=== PATIENT | female | born 1945 | race Caucasian/White ===

== ENCOUNTER 2017-11-17 09:38 | Outpatient (CLI) | payer MEDICARE, BC | END 2017-11-17 09:39 | disposition home or self-care (01) | LOC: BICMAMMO 09:38 | PROVIDERS: ATTEND Family Medicine | DX: Z12.31 Encounter for screening mammogram for malignant neoplasm of breast (principal) | CPT/HCPCS: 77063; 77067 ==

== ENCOUNTER 2018-05-07 09:53 | Emergency (ER) | payer MEDICARE, BC ==
[2018-05-07 10:27] LABS: #Basophils 0.1 thou/uL (0.0-0.2); #Eosinphils 0.2 thou/uL (0.0-0.7); #Lymphocytes 2.8 thou/uL (1.20-3.40); #Monocytes 0.7 thou/uL (0.11-0.59); #Neutrophils 4.8 thou/uL (1.40-6.50); %Basophils 0.7 % (0.0-1.0); %Eosinophils 1.9 % (0.0-10.0); %Monocytes 8.4 % (0.0-10.0); %Neutrophils 55.9 % (42.0-75.0); Hemoglobin 12.7 g/dL (12.0-16.0); Mean Corpuscular HGB CONC 32.6 g/dL (32.0-36.0); Mean Corpuscular Hemoglobin 30.7 pg (27.0-31.0); Mean Corpuscular Volume 94.2 fL (78.0-98.0); Mean Platelet Volume 7.5 fL (7.4-10.4); Platelet Count 292 thou/uL (130-400); RBC Distribution Width 12.5 % (11.5-14.5); Red Blood Cell (RBC) Count 4.14 mill/uL (4.20-5.40); White Blood Cell (WBC) Count 8.6 thou/uL (4.8-10.8)
[2018-05-07 10:45] LABS: ALT (SGPT) 36 U/L (8-55); AST (SGOT) 33 U/L (5-34); Albumin 4.6 g/dL (3.4-4.8); Alkaline Phosphatase 61 U/L (40-150); Anion Gap 19 mmol/L (10-20); BUN (Urea Nitrogen) 23 mg/dL (9.8-20.1); Bilirubin, Total 0.5 mg/dL (0.2-1.2); Calc. Creatinine Clearance 0 mL/min (70-130); Calcium 9.9 mg/dL (7.8-10.44); Carbon Dioxide 18 mmol/L (23-31); Chloride 104 mmol/L (98-107); Estimated GFR-MDRD 56; Globulin 3.1 g/dL (2.4-3.5); Glucose 138 mg/dL (83-110); Protein, Total 7.7 g/dL (6.0-8.3); Sodium 137 mmol/L (136-145)
== END 2018-05-07 11:00 | disposition home or self-care (01) ==
LOC: ERS 09:53
DX: K92.1 Melena (principal); E03.9 Hypothyroidism, unspecified; E11.9 Type 2 diabetes mellitus without complications; E78.5 Hyperlipidemia, unspecified; I10 Essential (primary) hypertension; Z79.899 Other long term (current) drug therapy; Z79.84 Long term (current) use of oral hypoglycemic drugs
CPT/HCPCS: 36415; 80053; 85025; 99283

== ENCOUNTER 2019-01-09 10:30 | Outpatient (CLI) | payer MEDICARE, BC ==
--- NOTE | 2019-01-09 11:29 | MMO ---
Bilateral MAMMO Bilat Screen [facility]. CLINICAL HISTORY: Patient is 73 years old and is seen for screening. The patient has no family history of breast cancer. The patient has no personal history of cancer. VIEWS: The views performed were: bilateral craniocaudal with tomosynthesis and bilateral mediolateral oblique with tomosynthesis. FILMS COMPARED: The present examination has been compared to a prior imaging study performed at [facility] on 11/17/2017. This study has been interpreted with the assistance of computer-aided detection. MAMMOGRAM FINDINGS: There are scattered fibroglandular densities. There are benign appearing calcifications seen in both breasts. There are no suspicious masses, suspicious calcifications, or new areas of architectural distortion. IMPRESSION: THERE IS NO MAMMOGRAPHIC EVIDENCE OF MALIGNANCY. A ROUTINE FOLLOW-UP MAMMOGRAM IN 1 YEAR IS RECOMMENDED. THE RESULTS OF THIS EXAM WERE SENT TO THE PATIENT. ACR BI-RADS Category 2 - Benign finding MAMMOGRAPHY NOTE: 1. A negative mammogram report should not delay a biopsy if a dominant of clinically suspicious mass is present. 2. Approximately 10% to 15% of breast cancers are not detected by mammography. 3. Adenosis and dense breasts may obscure an underlying neoplasm. Reported by: TWIN ASCENCIO MD Electonically Signed: [id number]
== END 2019-01-09 10:31 | disposition home or self-care (01) ==
LOC: BICMAMMO 10:30
PROVIDERS: ATTEND Family Medicine
DX: Z12.31 Encounter for screening mammogram for malignant neoplasm of breast (principal)
CPT/HCPCS: 77063; 77067

== ENCOUNTER 2019-03-22 15:17 | Emergency (ER) | payer MEDICARE, BC ==
[2019-03-22 16:25] LABS: #Basophils 0.1 thou/uL (0.0-0.2); #Eosinphils 0.2 thou/uL (0.0-0.7); #Lymphocytes 2.6 thou/uL (1.20-3.40); #Neutrophils 6.6 thou/uL (1.40-6.50); %Basophils 0.6 % (0.0-1.0); %Lymphocytes 24.9 % (21.0-51.0); %Monocytes 9.1 % (0.0-10.0); %Neutrophils 63.4 % (42.0-75.0); Hemoglobin 11.4 g/dL (12.0-16.0); Mean Corpuscular HGB CONC 33.8 g/dL (32.0-36.0); Mean Corpuscular Hemoglobin 30.5 pg (27.0-31.0); Mean Corpuscular Volume 90.3 fL (78.0-98.0); Mean Platelet Volume 7.2 fL (7.4-10.4); Platelet Count 303 thou/uL (130-400); RBC Distribution Width 12.1 % (11.5-14.5); Red Blood Cell (RBC) Count 3.72 mill/uL (4.20-5.40); White Blood Cell (WBC) Count 10.4 thou/uL (4.8-10.8)
[2019-03-22 16:59] LABS: ALT (SGPT) 30 U/L (8-55); AST (SGOT) 43 U/L (5-34); Albumin 4.5 g/dL (3.4-4.8); Alkaline Phosphatase 64 U/L (40-110); Anion Gap 16 mmol/L (10-20); BUN (Urea Nitrogen) 23 mg/dL (9.8-20.1); Bilirubin, Total 0.3 mg/dL (0.2-1.2); Calc. Creatinine Clearance 0 mL/min (70-130); Calcium 9.7 mg/dL (7.8-10.44); Carbon Dioxide 21 mmol/L (23-31); Chloride 106 mmol/L (98-107); Estimated GFR-MDRD 46; Glucose 160 mg/dL (83-110); Lipase 41 U/L (8-78); Potassium 3.9 mmol/L (3.5-5.1); Protein, Total 7.5 g/dL (6.0-8.3); Sodium 139 mmol/L (136-145)
[2019-03-22 19:50] LABS: Bacteria/HPF None Seen HPF (None Seen); Bilirubin Negative (Negative); Blood, Urine Negative (Negative); Clarity Clear (Clear); Glucose, Urine (Dipstick) Normal (Negative); Leukocyte 75 Leu/uL (Negative); Nitrite Negative (Negative); Protein, Urine (Dipstick) Negative (Neg-Trace); RBC/HPF 0-3 HPF (0-3); Squamous Epithelial 0-3 HPF (0-3); Urobilinogen Normal mg/dL (Less than 2)
== END 2019-03-22 20:47 | disposition home or self-care (01) ==
LOC: ERS 15:17
DX: K92.2 Gastrointestinal hemorrhage, unspecified (principal); E03.9 Hypothyroidism, unspecified; E78.5 Hyperlipidemia, unspecified; E11.9 Type 2 diabetes mellitus without complications; I10 Essential (primary) hypertension; Z79.899 Other long term (current) drug therapy; Z79.84 Long term (current) use of oral hypoglycemic drugs
CPT/HCPCS: 36415; 80053; 81003; 81015; 82274; 83690; 85025; 99284

== ENCOUNTER 2019-05-16 08:15 | Outpatient (CLI) | payer MEDICARE, BC ==
--- NOTE | 2019-05-16 09:37 | CT ---
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 COMPARISON: None. FINDINGS: The lung bases are clear. There is a 1 cm low-density lesion in the left lobe of the liver. A calcified gallstones present. The spleen, pancreas and adrenal glands are normal. There are nonobstructing bilateral renal calculi and small bilateral renal cysts. No free air, free fluid or lymphadenopathy seen in the abdomen or pelvis. The small bowel loops are n ot abnormally dilated. There are vascular calcifications without evidence of aneurysmal dilatation of the abdominal aorta. Degenerative changes seen in the spine. Minimal anterolisthesis of L4 over L5 . The patient is post hysterectomy. IMPRESSION: 1. Small hiatal hernia 2. Cholelithiasis 3. Small 1 cm low-density indeterminate lesion in the left lobe of the liver. 4. Nonobstructing bilateral renal calculi 5. Small bilateral renal cysts
[2019-05-16] MEDS ORDERED: Iopamidol-370 76% 500 ML 1 ML ONE (14:39)
== END 2019-05-16 08:16 | disposition home or self-care (01) ==
LOC: BICCT 08:15
PROVIDERS: ATTEND Physician Assistant Medical
DX: D50.9 Iron deficiency anemia, unspecified (principal); M19.90 Unspecified osteoarthritis, unspecified site; K44.9 Diaphragmatic hernia without obstruction or gangrene; K80.20 Calculus of gallbladder without cholecystitis without obstruction; N20.0 Calculus of kidney; N28.1 Cyst of kidney, acquired; K76.9 Liver disease, unspecified; Z85.9 Personal history of malignant neoplasm, unspecified
CPT/HCPCS: 74177; 82565; Q9967

== ENCOUNTER 2019-06-02 09:24 | Outpatient (CLI) | payer MEDICARE, BC ==
--- NOTE | 2019-06-02 12:03 | ULT ---
Hepatic Doppler ultrasound: 06/02/2019 HISTORY: Abnormal CT examination TECHNIQUE: Multiplanar grayscale sonographic imaging of the right upper quadrant obtained. Hepatic an d splenic vasculature assessed with Doppler interrogation including color flow and spectral analysis FINDINGS: Imaged pancreas unremarkable, partially obscured by bowel gas. Aorta and IVC appear grossly unremarkable. The hepatic parenchyma is diffusely heterogeneous and echogenic, suggesting hepatocellular disease, s uch as hepatic steatosis. Cholelithiasis noted. No gallbladder wall thickening or pericholecystic fluid. No gallstones are noted. The common bile duct measures up to 7 mm, upper limits of normal in a patient of this age. Left hepatic vein, left portal vein, middle hepatic vein, main portal vein, right portal vein, hepati c artery, and right hepatic vein demonstrate patency. There is a tiny hypoechoic lesion within the superior aspect of the left lobe of the liver which likely represent a small cyst, difficult to fully characterize given its small size, measuring approximately 1 cm. Spleen measures up to 9.9 cm, within normal limits. Splenic artery and splenic vein are patent and de monstrate appropriate waveforms. The kidneys were not evaluated on this examination. IMPRESSION: Hepatic parenchyma is heterogeneous and echogenic, suggesting steatosis. Cholelithiasis with no sonographic evidence of cholecystitis. CBD upper limits of normal in size. Hepatic and splenic vasculature patent.
== END 2019-06-02 09:25 | disposition home or self-care (01) ==
LOC: BICULT 09:24
PROVIDERS: ATTEND Internal Medicine Gastroenterology
DX: K76.9 Liver disease, unspecified (principal); K80.20 Calculus of gallbladder without cholecystitis without obstruction; R93.2 Abnormal findings on diagnostic imaging of liver and biliary tract
CPT/HCPCS: 76705

== ENCOUNTER 2020-02-06 10:12 | Outpatient (CLI) | payer MEDICARE, BC ==
--- NOTE | 2020-02-06 11:49 | MMO ---
Bilateral MAMMO Bilat Screen [facility]. CLINICAL HISTORY: Patient is 74 years old and is seen for screening. The patient has no family history of breast cancer. The patient has a history of colon cancer. VIEWS: The views performed were: bilateral craniocaudal with tomosynthesis and bilateral mediolateral oblique with tomosynthesis. FILMS COMPARED: The present examination has been compared to prior imaging studies performed at [facility] on 11/17/2017 and 01/09/2019. This study has been interpreted with the assistance of computer-aided detection. MAMMOGRAM FINDINGS: There are scattered fibroglandular densities. There are stable benign appearing calcifications seen in both breasts. There are no suspicious masses, suspicious calcifications, or new areas of architectural distortion. IMPRESSION: THERE IS NO MAMMOGRAPHIC EVIDENCE OF MALIGNANCY. A ROUTINE FOLLOW-UP MAMMOGRAM IN 1 YEAR IS RECOMMENDED. THE RESULTS OF THIS EXAM WERE SENT TO THE PATIENT. ACR BI-RADS Category 2 - Benign finding MAMMOGRAPHY NOTE: 1. A negative mammogram report should not delay a biopsy if a dominant of clinically suspicious mass is present. 2. Approximately 10% to 15% of breast cancers are not detected by mammography. 3. Adenosis and dense breasts may obscure an underlying neoplasm. Reported by: HOLLAND KULKARNI MD Electonically Signed: [id number]
== END 2020-02-06 10:13 | disposition home or self-care (01) ==
LOC: BICMAMMO 10:12
PROVIDERS: ATTEND Family Medicine
DX: Z12.31 Encounter for screening mammogram for malignant neoplasm of breast (principal); Z85.038 Personal history of other malignant neoplasm of large intestine
CPT/HCPCS: 77063; 77067

== ENCOUNTER 2020-04-10 15:27 | Outpatient (CLI) | payer MEDICARE, BC ==
--- NOTE | 2020-04-10 16:00 | RAD ---
3 views of the right shoulder: 04/10/2020 COMPARISON: None HISTORY: Right shoulder injury FINDINGS: There is degenerative change involving the right acromioclavicular joint with interspace na rrowing and inferior osteophyte formation. There is no widening of the acromioclavicular or coracoclavicular interspace and there is no displaced fracture or dislocation. IMPRESSION: Degenerative change. No acute fracture or dislocation.
--- NOTE | 2020-04-10 18:49 | RAD ---
RIGHT ELBOW FOUR VIEWS: 04/10/20 HISTORY: Injury right elbow. FINDINGS: Osteoarthrosis and degenerative changes noted involving the elbow with enthesophytes at the common fl exor and common extensor tendon insertion regions as well as some hypertrophic osteophytes. Probable small joint effusion. No overt acute fracture or dislocation. IMPRESSION: Osteoarthrosis and degenerative changes. Evidence for small joint effusion. No overt acute fracture. If patient has persistent or worsening right elbow pain, consider follow-up additional imaging with [facility] on a nonemergent basis. POS: OFF
== END 2020-04-10 15:28 | disposition home or self-care (01) ==
LOC: BICRAD 15:27
PROVIDERS: ATTEND Family Medicine
DX: S59.901A Unspecified injury of right elbow, initial encounter (principal); S49.91XA Unspecified injury of right shoulder and upper arm, initial encounter; M19.021 Primary osteoarthritis, right elbow; M25.421 Effusion, right elbow; M19.011 Primary osteoarthritis, right shoulder

== ENCOUNTER 2020-08-27 17:38 | Inpatient (IN) | payer MEDICARE, BC ==
[~2020-08-27 17:38] MED LIST: Iopamidol-370 76% 500 ML 1 ML ONE
[2020-08-27 18:16] LABS: Hemoglobin 13.2 g/dL (12.0-16.0); Mean Corpuscular Hemoglobin 28.5 pg (27.0-31.0); Mean Corpuscular Volume 89.2 fL (78.0-98.0); Mean Platelet Volume 7.3 fL (7.4-10.4); Platelet Count 322 thou/uL (130-400); RBC Distribution Width 13.8 % (11.5-14.5); Red Blood Cell (RBC) Count 4.62 mill/uL (4.20-5.40); White Blood Cell (WBC) Count 22.1 thou/uL (4.8-10.8)
[2020-08-27] MEDS ORDERED: Pantoprazole 40 MG VIAL ONE (18:24)
[2020-08-27] MEDS ORDERED: Mag-Al 1200 mg/1200 mg/30 ML UDCUP ONE (18:24)
[2020-08-27] MEDS ORDERED: Lidocaine Viscous Sol 2% 15 ml UD Cup ONE (18:24)
[2020-08-27 18:33] LABS: Band 10 % (5-11); Eosinophils 1 % (0-10); Lymphocytes 7 % (21-51); MDiff Complete? YES; Monocytes 2 % (0-10); Neutrophil 78 % (42-75); Platelet Morphology Comment Appears Adequate; RBC Morphology Normal
[2020-08-27 18:40] LABS: ALT (SGPT) 18 U/L (8-55); AST (SGOT) 25 U/L (5-34); Albumin 4.7 g/dL (3.4-4.8); Alkaline Phosphatase 75 U/L (40-110); Anion Gap 22 mmol/L (10-20); BUN (Urea Nitrogen) 18 mg/dL (9.8-20.1); Bilirubin, Total 0.3 mg/dL (0.2-1.2); Calc. Creatinine Clearance 0 mL/min (70-130); Calcium 10.9 mg/dL (7.8-10.44); Carbon Dioxide 20 mmol/L (23-31); Chloride 102 mmol/L (98-107); Globulin 3.6 g/dL (2.4-3.5); Glucose 177 mg/dL (83-110); Lipase 34 U/L (8-78); Potassium 3.8 mmol/L (3.5-5.1); Protein, Total 8.3 g/dL (5.8-8.1); Sodium 140 mmol/L (136-145)
[2020-08-27] MEDS ORDERED: Ondansetron PF 4 MG/2 ML Vial ONE ×2 (19:18→20:54)
[2020-08-27] MEDS ORDERED: Morphine 4 MG/ML VIAL ONE ×3 (19:18→23:37)
[2020-08-27 20:21] LABS: Bacteria/HPF None Seen HPF (None Seen); Bilirubin Negative (Negative); Blood, Urine Negative (Negative); Clarity Clear (Clear); Glucose, Urine (Dipstick) Normal (Negative); Ketone, Urine 10 mg/dL (Negative); Leukocyte Negative Leu/uL (Negative); Nitrite Negative (Negative); Protein, Urine (Dipstick) 30 mg/dL (Neg-Trace); RBC/HPF 0-3 HPF (0-3); Specific Gravity, Urine 1.025 (1.002-1.036); Squamous Epithelial None Seen HPF (0-3); Urobilinogen Normal mg/dL (Less than 2); WBC/HPF 0-3 HPF (0-3); pH, Urine 5.5 (5.0-9.0)
[2020-08-27] MEDS ORDERED: Benzocaine 20% Spray 60 ML CAN ONE (20:54)
[2020-08-27] MEDS ORDERED: Lidocaine 2% PF 5 ML VIAL ONE (20:54)
[2020-08-27] MEDS ORDERED: Lidocaine 2% Jelly 5 ML TUBE TOP SCH (21:15)
[2020-08-27] MEDS ORDERED: Ondansetron ODT 4 MG TAB SL PRN (23:15)
[2020-08-27] MEDS ORDERED: Acetaminophen 325 MG TAB PO PRN (23:15)
[2020-08-27] MEDS ORDERED: Ondansetron PF 4 MG/2 ML Vial IVP PRN (23:15)
[2020-08-27] MEDS: Sodium Chloride 0.9% 1,000 ML IV SCH (23:34)
[2020-08-27] MEDS: Morphine 4 MG/ML VIAL SLOW IVP PRN (23:35)
[2020-08-28] MEDS ORDERED: Morphine 4 MG/ML VIAL ONE (04:58)
[2020-08-28] MEDS: Morphine 4 MG/ML VIAL SLOW IVP PRN (05:03)
[2020-08-28 06:30] LABS: SARS-CoV-2 NAA Rapid Test Not Detected (NotDetected)
[2020-08-28] MEDS: Sodium Chloride 0.9% 1,000 ML IV SCH (08:12)
[2020-08-28] MEDS ORDERED: Dextrose 50% Abboject 50 ML SYRINGE SLOW IVP PRN (10:00)
[2020-08-28] MEDS ORDERED: Dextrose 5% in Water 1,000 ML IV PRN (10:00)
[2020-08-28] MEDS ORDERED: Morphine 4 MG/ML VIAL SLOW IVP PRN (10:04)
[2020-08-28] MEDS ORDERED: Meropenem 2 GM in Admixture Fee 1 EACH IVPB SCH (14:00)
[2020-08-28] MEDS ORDERED: Fentanyl 100 MCG/2 ML VIAL ONE ×4 (15:13→21:10)
[2020-08-28] MEDS ORDERED: EPINEPHrine 1 MG/ML AMP ONE (15:14)
[2020-08-28] MEDS ORDERED: Bupivacaine PF 0.5% 30 ML VIAL ONE (15:14)
[2020-08-28] MEDS ORDERED: Iothalamate Meglumine 60% 50 ML VIAL FS ONE (15:14)
[2020-08-28] MEDS ORDERED: Succinylcholine 200 MG/10 ml SYRINGE FS ONE (16:00)
[2020-08-28] MEDS ORDERED: Ondansetron PF 4 MG/2 ML Vial ONE (16:00)
[2020-08-28] MEDS ORDERED: Dexamethasone 20 MG/5 ML VIAL ONE (16:00)
[2020-08-28] MEDS ORDERED: PROPOFOL 200 MG/20 ML VIAL ONE (16:00)
[2020-08-28] MEDS ORDERED: Glycopyrrolate 0.2 MG/ML 5 ML SYRINGE ONE (16:00)
[2020-08-28] MEDS ORDERED: PHENYLEPHRINE-NS 100 MCG/ML 10 ML SYRINGE ONE (16:00)
[2020-08-28] MEDS ORDERED: Bupivacaine HCl 0.5%/Epinephrine 1:200,000/PF 30 ml Vial ONE (16:00)
[2020-08-28] MEDS ORDERED: Lidocaine 1% PF 5 ML VIAL ONE (16:00)
[2020-08-28] MEDS ORDERED: Rocuronium Bromide 10 MG/ML (10ML VIAL) ONE (16:00)
[2020-08-28] MEDS ORDERED: Albumin 5% 250 ML ONE (18:32)
[2020-08-28] MEDS ORDERED: Phenylephrine 10 MG/ML VIAL ONE (18:32)
[2020-08-28] MEDS: Meropenem 2 GM in Sodium Chloride 0.9% 100 ML IVPB SCH ×2 (19:23→22:32)
[2020-08-28] MEDS ORDERED: HYDROmorphone 2 MG/ML VIAL ONE (20:21)
[2020-08-28] MEDS ORDERED: SUGAMMADEX SODIUM 200 MG/2 ML VIAL ONE (20:22)
[2020-08-28] MEDS ORDERED: Promethazine HCl 25 MG/ML VIAL SLOW IVP PRN (20:40)
[2020-08-28] MEDS ORDERED: Promethazine HCl 25 MG/ML VIAL IM PRN ×2 (20:40→21:16)
[2020-08-28] MEDS ORDERED: Ondansetron HCl/PF 4 MG/2 ML Vial IVP PRN (20:40)
[2020-08-28] MEDS ORDERED: Ketorolac Tromethamine 30 MG/ML VIAL IVP PRN (20:46)
[2020-08-28] MEDS ORDERED: diphenhydrAMINE 50 MG/ML VIAL IVP PRN (21:16)
[2020-08-28] MEDS ORDERED: fentaNYL Citrate/PF 2,000 MCG in Sodium Chloride 0.9% 60 ML IV PRN (21:16)
[2020-08-28] MEDS ORDERED: Zolpidem Tartrate 5 MG TAB PO PRN (21:16)
[2020-08-28] MEDS ORDERED: Ondansetron PF 4 MG/2 ML Vial IVP PRN (21:16)
[2020-08-28] MEDS ORDERED: Naloxone HCl 0.4 mg/ml Vial IV PRN (21:16)
[2020-08-28] MEDS ORDERED: diphenhydrAMINE 50 MG/ML VIAL IM PRN (21:16)
[2020-08-28] MEDS ORDERED: diphenhydrAMINE 25 MG CAP PO PRN (21:16)
[2020-08-28] MEDS ORDERED: Communication Order-Pharmacy FS SCH (21:30)
[2020-08-28] MEDS: Enoxaparin Sodium 40 MG/0.4 ML SYRINGE SC SCH (22:32)
[2020-08-28] MEDS: Lactated Ringer's 1,000 ML IV SCH (22:36)
[2020-08-28] MEDS ORDERED: Albumin 25% 25 GM/100 ML BOT IVPB SCH (23:59)
[2020-08-28] MEDS ORDERED: Sodium Chloride 0.9% 1,000 ML IV SCH (23:59)
[2020-08-29 01:18] LABS: Hemoglobin 12.8 g/dL (12.0-16.0); Mean Corpuscular HGB CONC 31.5 g/dL (32.0-36.0); Mean Corpuscular Hemoglobin 29.6 pg (27.0-31.0); Mean Platelet Volume 7.7 fL (7.4-10.4); Platelet Count 224 thou/uL (130-400); RBC Distribution Width 14.3 % (11.5-14.5); Red Blood Cell (RBC) Count 4.33 mill/uL (4.20-5.40); White Blood Cell (WBC) Count 11.5 thou/uL (4.8-10.8)
[2020-08-29 01:32] LABS: Band 3 % (5-11); Lymphocytes 1 % (21-51); MDiff Complete? YES; Metamyelocyte 5 % (0-0); Monocytes 8 % (0-10); Neutrophil 83 % (42-75); Platelet Morphology Comment Appears Adequate
[2020-08-29] MEDS ORDERED: Sodium Chloride 0.9% 1,000 ML IV SCH ×2 (02:15→05:15)
[2020-08-29] MEDS: Lactated Ringer's 1,000 ML IV SCH (05:42)
[2020-08-29] MEDS: Meropenem 2 GM in Sodium Chloride 0.9% 100 ML IVPB SCH ×2 (05:42→16:05)
[2020-08-29 07:00] LABS: Anion Gap 16 mmol/L (10-20); BUN (Urea Nitrogen) 23 mg/dL (9.8-20.1); Calc. Creatinine Clearance 44 mL/min (70-130); Calcium 7.1 mg/dL (7.8-10.44); Carbon Dioxide 16 mmol/L (23-31); Chloride 116 mmol/L (98-107); Glucose 157 mg/dL (83-110); Magnesium 1.2 mg/dL (1.6-2.6); Phosphorus 3.1 mg/dL (2.3-4.7); Potassium 5.3 mmol/L (3.5-5.1); Sodium 143 mmol/L (136-145)
[2020-08-29] MEDS ORDERED: Sodium Chloride 0.45% 1,000 ML IV SCH ×2 (08:15→09:00)
[2020-08-29] MEDS: Pantoprazole 40 MG VIAL IVP SCH (08:37)
[2020-08-29] MEDS ORDERED: Non-Formulary Item 1 EACH (Diltiazem Hcl [Diltiazem 24hr Cd] 240 MG Cap.Er.24h) PO SCH (09:00)
[2020-08-29 09:17] LABS: Band 40 % (5-11); Hemoglobin 9.5 g/dL (12.0-16.0); Lymphocytes 8 % (21-51); MDiff Complete? YES; Mean Corpuscular HGB CONC 31.5 g/dL (32.0-36.0); Mean Corpuscular Hemoglobin 29.4 pg (27.0-31.0); Mean Corpuscular Volume 93.4 fL (78.0-98.0); Mean Platelet Volume 7.7 fL (7.4-10.4); Metamyelocyte 3 % (0-0); Monocytes 5 % (0-10); Neutrophil 44 % (42-75); Platelet Count 262 thou/uL (130-400); Platelet Morphology Comment Appears Adequate; RBC Distribution Width 14.1 % (11.5-14.5); RBC Morphology Normal; Red Blood Cell (RBC) Count 3.24 mill/uL (4.20-5.40); White Blood Cell (WBC) Count 24.8 thou/uL (4.8-10.8)
[2020-08-29] MEDS ORDERED: Sodium Chloride 0.45% 500 ML IV SCH (11:45)
[2020-08-29] MEDS: Sodium Chloride 0.45% 1,000 ML IV SCH ×3 (13:11→22:29)
[2020-08-29 15:25] LABS: Hemoglobin 9.1 g/dL (12.0-16.0); Mean Corpuscular Hemoglobin 29.4 pg (27.0-31.0); Mean Corpuscular Volume 94.8 fL (78.0-98.0); Mean Platelet Volume 7.5 fL (7.4-10.4); Platelet Count 265 thou/uL (130-400); White Blood Cell (WBC) Count 30.2 thou/uL (4.8-10.8)
[2020-08-29 15:58] LABS: Band 55 % (5-11); Lymphocytes 11 % (21-51); MDiff Complete? YES; Metamyelocyte 4 % (0-0); Monocytes 1 % (0-10); Neutrophil 27 % (42-75); Reactive Lymphocytes 2 % (0-10)
[2020-08-29] MEDS ORDERED: Furosemide 40 MG/4 ML VIAL ONE (17:52)
[2020-08-29] MEDS ORDERED: Furosemide 40 MG/4 ML VIAL SLOW IVP SCH (18:00)
[2020-08-29] MEDS ORDERED: Lidocaine 1% (PF) 30 ML VIAL ONE ×2 (18:38→18:42)
[2020-08-29] MEDS ORDERED: Fentanyl 100 MCG/2 ML VIAL ONE (18:40)
[2020-08-29] MEDS ORDERED: Sodium Chloride 0.9% 30 ML ONE (18:55)
[2020-08-29] MEDS ORDERED: Magnesium Sulfate 3 GM in Sodium Chloride 0.9% 100 ML IVPB SCH (19:15)
[2020-08-29] MEDS ORDERED: Ketamine 50 MG/ML (10ML VIAL) ONE (19:19)
[2020-08-29] MEDS ORDERED: Lidocaine 1% PF 5 ML VIAL ONE (19:29)
[2020-08-29] MEDS ORDERED: Ondansetron PF 4 MG/2 ML Vial ONE (19:29)
[2020-08-29] MEDS ORDERED: Calcium Chloride 1 GM/10 ML Abboject SYRINGE ONE (19:29)
[2020-08-29] MEDS ORDERED: PROPOFOL 200 MG/20 ML VIAL ONE (19:29)
[2020-08-29] MEDS ORDERED: Rocuronium Bromide 10 MG/ML (10ML VIAL) ONE (19:29)
[2020-08-29] MEDS ORDERED: Sodium Bicarb 50 MEQ/50 ML Abboject 8.4% SYRINGE ONE (19:48)
[2020-08-29] MEDS ORDERED: Sodium Bicarbonate 2.5 MEQ/5 ML VIAL ONE (19:48)
[2020-08-29] MEDS ORDERED: Ventilator Sedation Protocol 1 EACH FS SCH (21:00)
[2020-08-29 21:20] LABS: Actual Bicarbonate (HCO3a) 16.6 mEq/L (22-28); Base Excess (BEa) -9.2 mEq/L (-2.0 to +3.0); CO2 Tension 35.4 mmHg (35.0-45.0); Calcium, Ionized (arterial) 0.99 mmol/L (1.12-1.30); Carboxyhemoglobin (COHb) 0.5 gm% (0.0-3.0); Hemoglobin (Hb) 10.4 g/dL (12.0-16.0); O2 Tension (PaO2), arterial 73.2 mmHg (> 70.0); pH, Arterial 7.29 (7.35-7.45)
[2020-08-29 21:23] LABS: Hemoglobin 9.6 g/dL (12.0-16.0); Mean Corpuscular HGB CONC 32.3 g/dL (32.0-36.0); Mean Corpuscular Hemoglobin 29.5 pg (27.0-31.0); Mean Corpuscular Volume 91.4 fL (78.0-98.0); Mean Platelet Volume 7.6 fL (7.4-10.4); Platelet Count 216 thou/uL (130-400); RBC Distribution Width 14.1 % (11.5-14.5); Red Blood Cell (RBC) Count 3.26 mill/uL (4.20-5.40); White Blood Cell (WBC) Count 23.6 thou/uL (4.8-10.8)
[2020-08-29 21:25] LABS: Puncture Site Arterial Line
[2020-08-29] MEDS ORDERED: Fentanyl BOLUS 250 ML IVPB PRN (21:30)
[2020-08-29] MEDS ORDERED: Propofol BOLUS 1,000 MG/100 ML VIAL IV PRN (21:30)
[2020-08-29] MEDS ORDERED: DISCONTINUE PREVIOUS NARCOTIC PAIN MEDICATIONS AND BENZODIAZEPINES FS SCH (21:30)
[2020-08-29] MEDS ORDERED: Fentanyl CADD 100 ML IV SCH (21:30)
[2020-08-29] MEDS ORDERED: Propofol 1,000 MG/100 ML VIAL IV PRN (21:30)
[2020-08-29] MEDS ORDERED: Sodium Bicarb 50 MEQ/50 ML Abboject 8.4% SYRINGE IVP SCH (21:45)
[2020-08-29 21:49] LABS: Band 47 % (5-11); Lymphocytes 6 % (21-51); MDiff Complete? YES; Metamyelocyte 2 % (0-0); Monocytes 3 % (0-10); Neutrophil 42 % (42-75)
[2020-08-29] MEDS: Albuterol Sulfate 1.25 MG/3 ML NEB NEB SCH (21:53)
[2020-08-29] MEDS: Enoxaparin Sodium 40 MG/0.4 ML SYRINGE SC SCH (21:55)
[2020-08-29] MEDS: HumaLOG 300 UNITS/3 ML VIAL SC PRN (23:11)
[2020-08-29] MEDS: Albumin 25% 25 GM/100 ML BOT IVPB SCH (23:13)
[2020-08-30] MEDS: Meropenem 2 GM in Sodium Chloride 0.9% 100 ML IVPB SCH ×3 (01:35→15:56)
[2020-08-30] MEDS: Sodium Chloride 0.45% 1,000 ML IV SCH ×2 (01:35→08:59)
[2020-08-30] MEDS: Albuterol Sulfate 1.25 MG/3 ML NEB NEB SCH ×6 (01:53→22:36)
[2020-08-30] MEDS: HumaLOG 300 UNITS/3 ML VIAL SC PRN ×2 (03:51→22:24)
[2020-08-30] MEDS ORDERED: Sodium Chloride 0.9% 1,000 ML IV SCH (04:45)
[2020-08-30] MEDS: Albumin 25% 25 GM/100 ML BOT IVPB SCH ×3 (05:05→18:19)
[2020-08-30 05:08] LABS: Hemoglobin 8.9 g/dL (12.0-16.0); Mean Corpuscular HGB CONC 32.5 g/dL (32.0-36.0); Mean Corpuscular Hemoglobin 29.4 pg (27.0-31.0); Mean Corpuscular Volume 90.5 fL (78.0-98.0); Mean Platelet Volume 8.1 fL (7.4-10.4); Platelet Count 204 thou/uL (130-400); RBC Distribution Width 14.1 % (11.5-14.5); Red Blood Cell (RBC) Count 3.03 mill/uL (4.20-5.40); White Blood Cell (WBC) Count 19.6 thou/uL (4.8-10.8)
[2020-08-30 05:14] LABS: ALT (SGPT) 30 U/L (8-55); AST (SGOT) 65 U/L (5-34); Alkaline Phosphatase 44 U/L (40-110); Bilirubin, Direct 0.6 mg/dL (0.1-0.3); Bilirubin, Total 0.9 mg/dL (0.2-1.2)
[2020-08-30 05:27] LABS: Anion Gap 13 mmol/L (10-20); BUN (Urea Nitrogen) 24 mg/dL (9.8-20.1); Calc. Creatinine Clearance 47 mL/min (70-130); Calcium 7.5 mg/dL (7.8-10.44); Carbon Dioxide 22 mmol/L (23-31); Chloride 106 mmol/L (98-107); Glucose 169 mg/dL (83-110); Magnesium 1.6 mg/dL (1.6-2.6); Potassium 3.5 mmol/L (3.5-5.1); Sodium 137 mmol/L (136-145)
[2020-08-30 05:42] LABS: Band 46 % (5-11); Lymphocytes 6 % (21-51); MDiff Complete? YES; Metamyelocyte 5 % (0-0); Monocytes 2 % (0-10); Neutrophil 41 % (42-75)
[2020-08-30 06:51] LABS: Actual Bicarbonate (HCO3a) 20.8 mEq/L (22-28); Base Excess (BEa) -3.4 mEq/L (-2.0 to +3.0); CO2 Tension 33.6 mmHg (35.0-45.0); Calcium, Ionized (arterial) 0.92 mmol/L (1.12-1.30); Carboxyhemoglobin (COHb) 0.3 gm% (0.0-3.0); Hemoglobin (Hb) 8.9 g/dL (12.0-16.0); O2 Tension (PaO2), arterial 76.5 mmHg (> 70.0); Potassium - ABG Lab 3.25 mmol/L (3.70-5.30); pH, Arterial 7.41 (7.35-7.45)
[2020-08-30 07:12] LABS: Puncture Site Arterial Line
[2020-08-30] MEDS: Lactated Ringer's 1,000 ML IV SCH (11:06)
[2020-08-30] MEDS: Pantoprazole 40 MG VIAL IVP SCH (11:17)
[2020-08-30] MEDS ORDERED: Lactated Ringer's 1,000 ML IV SCH (13:45)
[2020-08-30] MEDS: Morphine 2 MG/ML VIAL SLOW IVP PRN (18:19)
[2020-08-30] MEDS: Enoxaparin Sodium 40 MG/0.4 ML SYRINGE SC SCH (20:27)
[2020-08-31] MEDS: Meropenem 2 GM in Sodium Chloride 0.9% 100 ML IVPB SCH ×3 (00:28→16:53)
[2020-08-31] MEDS: Lactated Ringer's 1,000 ML IV SCH ×2 (00:28→20:05)
[2020-08-31] MEDS: Albumin 25% 25 GM/100 ML BOT IVPB SCH (00:28)
[2020-08-31] MEDS: Albuterol Sulfate 1.25 MG/3 ML NEB NEB SCH ×6 (02:29→22:18)
[2020-08-31 05:14] LABS: Hemoglobin 7.8 g/dL (12.0-16.0); Mean Corpuscular HGB CONC 34.1 g/dL (32.0-36.0); Mean Corpuscular Hemoglobin 30.3 pg (27.0-31.0); Mean Corpuscular Volume 88.8 fL (78.0-98.0); Mean Platelet Volume 7.8 fL (7.4-10.4); Platelet Count 178 thou/uL (130-400); RBC Distribution Width 13.8 % (11.5-14.5); Red Blood Cell (RBC) Count 2.57 mill/uL (4.20-5.40); White Blood Cell (WBC) Count 15.6 thou/uL (4.8-10.8)
[2020-08-31 05:19] LABS: Anion Gap 17 mmol/L (10-20); BUN (Urea Nitrogen) 14 mg/dL (9.8-20.1); Calc. Creatinine Clearance 85 mL/min (70-130); Calcium 7.7 mg/dL (7.8-10.44); Carbon Dioxide 19 mmol/L (23-31); Chloride 106 mmol/L (98-107); Glucose 153 mg/dL (83-110); Magnesium 1.7 mg/dL (1.6-2.6); Sodium 139 mmol/L (136-145)
[2020-08-31 05:23] LABS: ALT (SGPT) 21 U/L (8-55); AST (SGOT) 30 U/L (5-34); Albumin 3.6 g/dL (3.4-4.8); Alkaline Phosphatase 49 U/L (40-110); Bilirubin, Direct 0.4 mg/dL (0.1-0.3); Bilirubin, Total 0.7 mg/dL (0.2-1.2); Protein, Total 5.6 g/dL (5.8-8.1)
[2020-08-31 06:56] LABS: Band 31 % (5-11); Lymphocytes 2 % (21-51); MDiff Complete? YES; Monocytes 9 % (0-10); Neutrophil 58 % (42-75)
[2020-08-31 07:28] LABS: Actual Bicarbonate (HCO3a) 19.6 mEq/L (22-28); Base Excess (BEa) -3.2 mEq/L (-2.0 to +3.0); CO2 Tension 26.8 mmHg (35.0-45.0); Calcium, Ionized (arterial) 0.97 mmol/L (1.12-1.30); Carboxyhemoglobin (COHb) 0.3 gm% (0.0-3.0); Hemoglobin (Hb) 7.9 g/dL (12.0-16.0); O2 Tension (PaO2), arterial 101.4 mmHg (> 70.0); Potassium - ABG Lab 3.08 mmol/L (3.70-5.30); pH, Arterial 7.48 (7.35-7.45)
[2020-08-31 07:40] LABS: Puncture Site Arterial Line
[2020-08-31] MEDS: Pantoprazole 40 MG VIAL IVP SCH (08:20)
[2020-08-31] MEDS ORDERED: Magnesium Sulfate 3 GM in Sodium Chloride 0.9% 250 ML 250 ML IVPB SCH (10:15)
[2020-08-31] MEDS ORDERED: Potassium Phosphate 30 MMOL in Sodium Chloride 0.9% 250 ML 250 ML IVPB SCH (10:15)
[2020-08-31] MEDS: Enoxaparin Sodium 40 MG/0.4 ML SYRINGE SC SCH (20:07)
[2020-09-01] MEDS: Meropenem 2 GM in Sodium Chloride 0.9% 100 ML IVPB SCH ×3 (00:08→16:12)
[2020-09-01] MEDS: Albuterol Sulfate 1.25 MG/3 ML NEB NEB SCH ×6 (01:43→22:13)
[2020-09-01] MEDS: Lactated Ringer's 1,000 ML IV SCH ×2 (03:46→10:41)
[2020-09-01 04:44] LABS: Anion Gap 13 mmol/L (10-20); BUN (Urea Nitrogen) 12 mg/dL (9.8-20.1); Calc. Creatinine Clearance 105 mL/min (70-130); Carbon Dioxide 22 mmol/L (23-31); Chloride 107 mmol/L (98-107); Glucose 133 mg/dL (83-110); Magnesium 2.1 mg/dL (1.6-2.6); Potassium 3.6 mmol/L (3.5-5.1); Sodium 138 mmol/L (136-145)
[2020-09-01 05:10] LABS: Band 19 % (5-11); Hemoglobin 7.8 g/dL (12.0-16.0); Lymphocytes 9 % (21-51); MDiff Complete? YES; Mean Corpuscular HGB CONC 32.6 g/dL (32.0-36.0); Mean Corpuscular Hemoglobin 29.4 pg (27.0-31.0); Mean Corpuscular Volume 90.2 fL (78.0-98.0); Mean Platelet Volume 7.2 fL (7.4-10.4); Monocytes 4 % (0-10); Neutrophil 68 % (42-75); Platelet Count 166 thou/uL (130-400); RBC Distribution Width 13.6 % (11.5-14.5); Red Blood Cell (RBC) Count 2.66 mill/uL (4.20-5.40); White Blood Cell (WBC) Count 14.5 thou/uL (4.8-10.8)
[2020-09-01 07:11] LABS: Actual Bicarbonate (HCO3a) 18.9 mEq/L (22-28); Base Excess (BEa) -4.5 mEq/L (-2.0 to +3.0); CO2 Tension 28.6 mmHg (35.0-45.0); Calcium, Ionized (arterial) 1.11 mmol/L (1.12-1.30); Hemoglobin (Hb) 8.2 g/dL (12.0-16.0); O2 Tension (PaO2), arterial 86.1 mmHg (> 70.0); Potassium - ABG Lab 3.52 mmol/L (3.70-5.30); pH, Arterial 7.44 (7.35-7.45)
[2020-09-01 07:22] LABS: Puncture Site Arterial Line
[2020-09-01] MEDS: Pantoprazole 40 MG VIAL IVP SCH (10:48)
[2020-09-01] MEDS: Enoxaparin Sodium 40 MG/0.4 ML SYRINGE SC SCH (21:42)
[2020-09-02] MEDS: Meropenem 2 GM in Sodium Chloride 0.9% 100 ML IVPB SCH ×3 (00:13→16:38)
[2020-09-02] MEDS: Lactated Ringer's 1,000 ML IV SCH ×2 (00:14→14:11)
[2020-09-02] MEDS: Albuterol Sulfate 1.25 MG/3 ML NEB NEB SCH ×3 (02:05→10:40)
[2020-09-02] MEDS: Pantoprazole 40 MG VIAL IVP SCH (09:24)
[2020-09-02] MEDS ORDERED: methylPREDNISolone Sod Succ 40 MG VIAL IVP SCH (12:00)
[2020-09-02] MEDS: methylPREDNISolone Sod Succ 40 MG VIAL IVP SCH ×2 (12:06→17:02)
[2020-09-02 12:37] LABS: Actual Bicarbonate (HCO3a) 19.8 mEq/L (22-28); Base Excess (BEa) -6.8 mEq/L (-2.0 to +3.0); CO2 Tension 44.1 mmHg (35.0-45.0); Hemoglobin (Hb) 8.8 g/dL (12.0-16.0); O2 Tension (PaO2), arterial 190.7 mmHg (> 70.0); pH, Arterial 7.27 (7.35-7.45)
[2020-09-02 12:38] LABS: Actual Bicarbonate (HCO3a) 20.1 mEq/L (22-28); Analyzer IN Cardio OR; Base Excess (BEa) -5.1 mEq/L (-2.0 to +3.0); CO2 Tension 37.6 mmHg (35.0-45.0); Calcium, Ionized (arterial) 1.01 mmol/L (1.12-1.30); Carboxyhemoglobin (COHb) 0.7 gm% (0.0-3.0); Hemoglobin (Hb) 10.2 g/dL (12.0-16.0); O2 Tension (PaO2), arterial 176.7 mmHg (> 70.0); Potassium - ABG Lab 4.56 mmol/L (3.70-5.30); Puncture Site Arterial Line; pH, Arterial 7.35 (7.35-7.45)
[2020-09-02 12:38] LABS: Analyzer IN Cardio OR; Calcium, Ionized (arterial) 1.21 mmol/L (1.12-1.30); Carboxyhemoglobin (COHb) 1.3 gm% (0.0-3.0); Potassium - ABG Lab 4.41 mmol/L (3.70-5.30); Puncture Site Arterial Line
[2020-09-02] MEDS: Enoxaparin Sodium 40 MG/0.4 ML SYRINGE SC SCH (19:50)
[2020-09-02] MEDS: HumaLOG 300 UNITS/3 ML VIAL SC PRN (19:53)
[2020-09-03] MEDS: methylPREDNISolone Sod Succ 40 MG VIAL IVP SCH ×5 (00:23→23:59)
[2020-09-03] MEDS: Meropenem 2 GM in Sodium Chloride 0.9% 100 ML IVPB SCH ×4 (00:23→23:59)
[2020-09-03 05:11] LABS: Mean Corpuscular HGB CONC 32.2 g/dL (32.0-36.0); Mean Corpuscular Volume 89.9 fL (78.0-98.0); Mean Platelet Volume 7.8 fL (7.4-10.4); Platelet Count 229 thou/uL (130-400); RBC Distribution Width 13.8 % (11.5-14.5); Red Blood Cell (RBC) Count 2.77 mill/uL (4.20-5.40); White Blood Cell (WBC) Count 19.1 thou/uL (4.8-10.8)
[2020-09-03] MEDS: Lactated Ringer's 1,000 ML IV SCH ×2 (05:15→15:45)
[2020-09-03 05:30] LABS: Anion Gap 16 mmol/L (10-20); BUN (Urea Nitrogen) 15 mg/dL (9.8-20.1); Calc. Creatinine Clearance 108 mL/min (70-130); Calcium 8.9 mg/dL (7.8-10.44); Carbon Dioxide 21 mmol/L (23-31); Chloride 107 mmol/L (98-107); Glucose 191 mg/dL (83-110); Potassium 3.5 mmol/L (3.5-5.1); Sodium 140 mmol/L (136-145)
[2020-09-03] MEDS: HumaLOG 300 UNITS/3 ML VIAL SC PRN ×4 (05:41→20:19)
[2020-09-03 05:58] LABS: Band 18 % (5-11); Lymphocytes 5 % (21-51); MDiff Complete? YES; Metamyelocyte 1 % (0-0); Monocytes 2 % (0-10); Myelocyte 2 % (0-0); Neutrophil 72 % (42-75)
[2020-09-03] MEDS: Lorazepam 2 MG/ML VIAL SLOW IVP PRN ×4 (07:59→15:42)
[2020-09-03] MEDS: Pantoprazole 40 MG VIAL IVP SCH (08:01)
[2020-09-03] MEDS: Enoxaparin Sodium 40 MG/0.4 ML SYRINGE SC SCH (20:18)
[2020-09-04] MEDS: HumaLOG 300 UNITS/3 ML VIAL SC PRN ×4 (04:03→20:30)
[2020-09-04] MEDS: methylPREDNISolone Sod Succ 40 MG VIAL IVP SCH ×4 (05:15→23:44)
[2020-09-04] MEDS: Pantoprazole 40 MG VIAL IVP SCH (08:14)
[2020-09-04] MEDS: Meropenem 2 GM in Sodium Chloride 0.9% 100 ML IVPB SCH ×3 (08:14→23:44)
[2020-09-04] MEDS: Lactated Ringer's 1,000 ML IV SCH ×2 (10:34→23:44)
[2020-09-04] MEDS: Enoxaparin Sodium 40 MG/0.4 ML SYRINGE SC SCH (20:31)
[2020-09-05 04:11] LABS: Anion Gap 15 mmol/L (10-20); BUN (Urea Nitrogen) 25 mg/dL (9.8-20.1); Calc. Creatinine Clearance 110 mL/min (70-130); Calcium 8.7 mg/dL (7.8-10.44); Carbon Dioxide 24 mmol/L (23-31); Chloride 108 mmol/L (98-107); Glucose 216 mg/dL (83-110); Potassium 3.6 mmol/L (3.5-5.1); Sodium 143 mmol/L (136-145)
[2020-09-05 04:48] LABS: Band 14 % (5-11); Hemoglobin 9.4 g/dL (12.0-16.0); Lymphocytes 5 % (21-51); MDiff Complete? YES; Mean Corpuscular HGB CONC 33.3 g/dL (32.0-36.0); Mean Corpuscular Hemoglobin 29.7 pg (27.0-31.0); Mean Corpuscular Volume 89.1 fL (78.0-98.0); Mean Platelet Volume 7.9 fL (7.4-10.4); Metamyelocyte 3 % (0-0); Monocytes 1 % (0-10); Myelocyte 1 % (0-0); Neutrophil 76 % (42-75); Platelet Count 389 thou/uL (130-400); RBC Distribution Width 14.1 % (11.5-14.5); Red Blood Cell (RBC) Count 3.15 mill/uL (4.20-5.40); White Blood Cell (WBC) Count 22.2 thou/uL (4.8-10.8)
[2020-09-05] MEDS: methylPREDNISolone Sod Succ 40 MG VIAL IVP SCH ×4 (05:05→23:36)
[2020-09-05] MEDS: HumaLOG 300 UNITS/3 ML VIAL SC PRN ×4 (05:05→22:29)
[2020-09-05] MEDS: Meropenem 2 GM in Sodium Chloride 0.9% 100 ML IVPB SCH ×3 (09:00→23:36)
[2020-09-05] MEDS: Pantoprazole 40 MG VIAL IVP SCH (09:01)
[2020-09-05] MEDS: Lactated Ringer's 1,000 ML IV SCH ×2 (10:07→23:36)
[2020-09-05] MEDS ORDERED: Acetaminophen 500 MG TAB PO PRN ×2 (10:24→14:41)
[2020-09-05] MEDS: Morphine 2 MG/ML VIAL SLOW IVP PRN (12:26)
[2020-09-05] MEDS ORDERED: traMADol HCl 50 MG TAB PO PRN (14:41)
[2020-09-05] MEDS: Enoxaparin Sodium 40 MG/0.4 ML SYRINGE SC SCH (20:12)
[2020-09-06] MEDS: HumaLOG 300 UNITS/3 ML VIAL SC PRN ×4 (03:48→22:16)
[2020-09-06] MEDS: methylPREDNISolone Sod Succ 40 MG VIAL IVP SCH ×4 (05:32→23:30)
[2020-09-06] MEDS: Levothyroxine Sodium 75 MCG TAB PO SCH (05:32)
[2020-09-06] MEDS: Pantoprazole 40 MG VIAL IVP SCH (08:38)
[2020-09-06] MEDS: Multivit, Therapeutic 1 TAB PO SCH (08:38)
[2020-09-06] MEDS: Polyethylene Glycol 3350 17 GM Packet PO SCH (08:38)
[2020-09-06] MEDS: Losartan 25 MG TAB PO SCH (08:39)
[2020-09-06] MEDS: Stress 600 With Zinc 1 TAB PO SCH (08:40)
[2020-09-06] MEDS: Meropenem 2 GM in Sodium Chloride 0.9% 100 ML IVPB SCH ×2 (08:42→16:19)
[2020-09-06] MEDS: Lactated Ringer's 1,000 ML IV SCH (12:27)
[2020-09-06] MEDS: Simvastatin 10 MG TAB PO SCH (20:44)
[2020-09-06] MEDS: Enoxaparin Sodium 40 MG/0.4 ML SYRINGE SC SCH (20:44)
[2020-09-07] MEDS: Meropenem 2 GM in Sodium Chloride 0.9% 100 ML IVPB SCH ×3 (00:11→16:30)
[2020-09-07] MEDS: HumaLOG 300 UNITS/3 ML VIAL SC PRN ×4 (04:19→21:14)
[2020-09-07] MEDS: Levothyroxine Sodium 75 MCG TAB PO SCH (05:01)
[2020-09-07] MEDS: methylPREDNISolone Sod Succ 40 MG VIAL IVP SCH ×3 (05:01→17:33)
[2020-09-07] MEDS: Hydrochlorothiazide 25 MG TAB PO SCH (08:35)
[2020-09-07] MEDS: Multivit, Therapeutic 1 TAB PO SCH (08:35)
[2020-09-07] MEDS: metFORMIN 500 MG TAB PO SCH ×2 (08:35→16:30)
[2020-09-07] MEDS: Stress 600 With Zinc 1 TAB PO SCH (08:35)
[2020-09-07] MEDS: Polyethylene Glycol 3350 17 GM Packet PO SCH (08:36)
[2020-09-07] MEDS: Losartan 25 MG TAB PO SCH (08:39)
[2020-09-07] MEDS: Simvastatin 10 MG TAB PO SCH (20:46)
[2020-09-07] MEDS: Enoxaparin Sodium 40 MG/0.4 ML SYRINGE SC SCH (20:46)
[2020-09-08] MEDS: Levothyroxine Sodium 75 MCG TAB PO SCH (05:25)
[2020-09-08] MEDS: HumaLOG 300 UNITS/3 ML VIAL SC PRN ×3 (05:25→17:01)
[2020-09-08] MEDS: metFORMIN 500 MG TAB PO SCH ×2 (08:58→16:58)
[2020-09-08] MEDS: Hydrochlorothiazide 25 MG TAB PO SCH (08:59)
[2020-09-08] MEDS: Losartan 25 MG TAB PO SCH (08:59)
[2020-09-08] MEDS: Multivit, Therapeutic 1 TAB PO SCH (08:59)
[2020-09-08] MEDS: Stress 600 With Zinc 1 TAB PO SCH (09:00)
[2020-09-08] MEDS: Polyethylene Glycol 3350 17 GM Packet PO SCH (09:06)
[2020-09-08] MEDS: Enoxaparin Sodium 40 MG/0.4 ML SYRINGE SC SCH (20:46)
[2020-09-08] MEDS: Simvastatin 10 MG TAB PO SCH (20:46)
[2020-09-09] MEDS: HumaLOG 300 UNITS/3 ML VIAL SC PRN (04:28)
[2020-09-09 05:06] LABS: #Monocytes 0.7 thou/uL (0.11-0.59); %Eosinophils 0.2 % (0.0-10.0); %Lymphocytes 6.4 % (21.0-51.0); %Monocytes 4.7 % (0.0-10.0); %Neutrophils 88.6 % (42.0-75.0); Hemoglobin 10.2 g/dL (12.0-16.0); Mean Corpuscular HGB CONC 31.2 g/dL (32.0-36.0); Mean Corpuscular Hemoglobin 28.4 pg (27.0-31.0); Mean Corpuscular Volume 90.9 fL (78.0-98.0); Mean Platelet Volume 8.3 fL (7.4-10.4); Platelet Count 358 thou/uL (130-400); Red Blood Cell (RBC) Count 3.61 mill/uL (4.20-5.40); White Blood Cell (WBC) Count 15.8 thou/uL (4.8-10.8)
[2020-09-09 05:12] LABS: Hemoglobin A1c 6.7 % (4.0-6.0)
[2020-09-09 05:24] LABS: Anion Gap 8 mmol/L (10-20); BUN (Urea Nitrogen) 24 mg/dL (9.8-20.1); Calc. Creatinine Clearance 125 mL/min (70-130); Calcium 7.7 mg/dL (7.8-10.44); Carbon Dioxide 32 mmol/L (23-31); Chloride 105 mmol/L (98-107); Glucose 181 mg/dL (83-110); Potassium 3.1 mmol/L (3.5-5.1); Sodium 142 mmol/L (136-145)
[2020-09-09] MEDS: Levothyroxine Sodium 75 MCG TAB PO SCH (06:08)
[2020-09-09] MEDS: Losartan 25 MG TAB PO SCH (08:54)
[2020-09-09] MEDS: Hydrochlorothiazide 25 MG TAB PO SCH (08:55)
[2020-09-09] MEDS: Multivit, Therapeutic 1 TAB PO SCH (08:55)
[2020-09-09] MEDS: metFORMIN 500 MG TAB PO SCH ×2 (08:56→17:32)
[2020-09-09] MEDS: Polyethylene Glycol 3350 17 GM Packet PO SCH (08:56)
[2020-09-09] MEDS: Stress 600 With Zinc 1 TAB PO SCH (09:49)
[2020-09-09 10:37] VITALS: BMI 44.8
[2020-09-09] MEDS: Enoxaparin Sodium 40 MG/0.4 ML SYRINGE SC SCH (21:24)
[2020-09-09] MEDS: Simvastatin 10 MG TAB PO SCH (21:24)
[2020-09-10] MEDS: Levothyroxine Sodium 75 MCG TAB PO SCH (05:14)
[2020-09-10] MEDS: HumaLOG 300 UNITS/3 ML VIAL SC PRN ×2 (05:25→12:10)
[2020-09-10] MEDS: Stress 600 With Zinc 1 TAB PO SCH (08:56)
[2020-09-10] MEDS: metFORMIN 500 MG TAB PO SCH ×2 (08:56→17:23)
[2020-09-10] MEDS: Multivit, Therapeutic 1 TAB PO SCH (08:57)
[2020-09-10] MEDS: Hydrochlorothiazide 25 MG TAB PO SCH (08:58)
[2020-09-10] MEDS: Losartan 25 MG TAB PO SCH (08:58)
[2020-09-10] MEDS: Polyethylene Glycol 3350 17 GM Packet PO SCH (08:59)
[2020-09-10 16:00] VITALS: BP 122/73; TEMP 97.9
== END 2020-09-10 18:09 | DRG 329 ==
LOC: ERS 17:38 → ERHOLD 21:08 → SURG B 08-28 07:44 → CCU 08-29 21:03 → IMCU/EMU 09-05 10:11 → SURG A 09-07 20:02
PROVIDERS: ADMIT Specialist; ATTEND Specialist
PROC: 0D9670Z Drainage of Stomach with Drainage Device, Via Natural or Artificial Opening (ICD-10-PCS; 2020-08-27)
PROC: 0DB80ZZ Excision of Small Intestine, Open Approach (ICD-10-PCS; principal; 2020-08-28)
PROC: 0FT40ZZ Resection of Gallbladder, Open Approach (ICD-10-PCS; 2020-08-28)
PROC: 0DN80ZZ Release Small Intestine, Open Approach (ICD-10-PCS; 2020-08-28)
PROC: 0DBB0ZZ Excision of Ileum, Open Approach (ICD-10-PCS; 2020-08-28)
PROC: 0WQF0ZZ Repair Abdominal Wall, Open Approach (ICD-10-PCS; 2020-08-28)
PROC: 0FJ44ZZ Inspection of Gallbladder, Percutaneous Endoscopic Approach (ICD-10-PCS; 2020-08-28)
PROC: 0W9G00Z Drainage of Peritoneal Cavity with Drainage Device, Open Approach (ICD-10-PCS; 2020-08-29)
PROC: 5A1955Z Respiratory Ventilation, Greater than 96 Consecutive Hours (ICD-10-PCS; 2020-08-29)
PROC: 3E033XZ Introduction of Vasopressor into Peripheral Vein, Percutaneous Approach (ICD-10-PCS; 2020-08-29)
PROC: 30233N1 Transfusion of Nonautologous Red Blood Cells into Peripheral Vein, Percutaneous Approach (ICD-10-PCS; 2020-08-29)
PROC: 02HV33Z Insertion of Infusion Device into Superior Vena Cava, Percutaneous Approach (ICD-10-PCS; 2020-08-29)
PROC: 0BJ08ZZ Inspection of Tracheobronchial Tree, Via Natural or Artificial Opening Endoscopic (ICD-10-PCS; 2020-09-04)
DX: K56.50 Intestinal adhesions [bands], unspecified as to partial versus complete obstruction (principal); J95.821 Acute postprocedural respiratory failure; C7A.019 Malignant carcinoid tumor of the small intestine, unspecified portion; K80.11 Calculus of gallbladder with chronic cholecystitis with obstruction; C25.9 Malignant neoplasm of pancreas, unspecified; N17.9 Acute kidney failure, unspecified; Z68.41 Body mass index [BMI] 40.0-44.9, adult; R65.10 Systemic inflammatory response syndrome (SIRS) of non-infectious origin without acute organ dysfunction; K56.7 Ileus, unspecified; Z20.822 Contact with and (suspected) exposure to COVID-19; Z96.653 Presence of artificial knee joint, bilateral; I10 Essential (primary) hypertension; E11.9 Type 2 diabetes mellitus without complications; E03.9 Hypothyroidism, unspecified; E78.5 Hyperlipidemia, unspecified; E66.01 Morbid (severe) obesity due to excess calories; D72.829 Elevated white blood cell count, unspecified; I95.9 Hypotension, unspecified; Y83.8 Other surgical procedures as the cause of abnormal reaction of the patient, or of later complication, without mention of misadventure at the time of the procedure; Z79.890 Hormone replacement therapy; Z79.899 Other long term (current) drug therapy; Z79.84 Long term (current) use of oral hypoglycemic drugs; Z90.710 Acquired absence of both cervix and uterus; Z90.49 Acquired absence of other specified parts of digestive tract; Z85.030 Personal history of malignant carcinoid tumor of large intestine; Z78.1 Physical restraint status
CPT/HCPCS: 36415; 36416; 36430; 43752; 51701; 71045; 74018; 74022; 74177; 76705; 80048; 80053; 80076; 81003; 81015; 82805; 83036; 83690; 83735; 84100; 85025; 86850; 86900; 86901; 88304; 88307; 88341; 88342; 88360; 93005; 93010; 93306; 94002; 94003; 94640; 96374; 96375; 96376; C1751; C9113; J0171; J1100; J1170; J1650; J1815; J1940; J2001; J2060; J2185; J2270; J2370; J2405; J2704; J2920; J3010; J3475; J3490; J7050; J7070; J7620; P9016; P9045; P9047; Q9961; Q9967; S0020; U0002; U0005

== ENCOUNTER 2021-01-15 08:27 | Outpatient (CLI) | payer MEDICARE, BC ==
[2021-01-15] MEDS ORDERED: Iopamidol 370 76% 100 ML VIAL ONE (11:02)
== END 2021-01-15 08:28 | disposition home or self-care (01) ==
LOC: CT 08:27
PROVIDERS: ATTEND Internal Medicine Hematology & Oncology
DX: C7A.012 Malignant carcinoid tumor of the ileum (principal); K63.89 Other specified diseases of intestine
CPT/HCPCS: 71260; 74177; 82565; Q9967

== ENCOUNTER 2021-03-04 11:03 | Outpatient (CLI) | payer MEDICARE, BC | END 2021-03-04 11:04 | disposition home or self-care (01) | LOC: BICMAMMO 11:03 | PROVIDERS: ATTEND Family Medicine | DX: Z12.31 Encounter for screening mammogram for malignant neoplasm of breast (principal); Z85.038 Personal history of other malignant neoplasm of large intestine | CPT/HCPCS: 77063; 77067 ==

== ENCOUNTER 2021-07-24 08:49 | Outpatient (CLI) | payer MEDICARE, BC | END 2021-07-24 08:50 | disposition home or self-care (01) | LOC: BICCT 08:49 | PROVIDERS: ATTEND Internal Medicine Hematology & Oncology | DX: C7A.012 Malignant carcinoid tumor of the ileum (principal); N20.0 Calculus of kidney; N28.1 Cyst of kidney, acquired; R19.00 Intra-abdominal and pelvic swelling, mass and lump, unspecified site | CPT/HCPCS: 74177; 82565 ==

== ENCOUNTER 2022-01-27 07:46 | Outpatient (CLI) | payer MEDICARE, BC ==
[2022-01-27] MEDS ORDERED: Iopamidol-370 76% 500 ML 1 ML ONE (09:50)
== END 2022-01-27 07:47 | disposition home or self-care (01) ==
LOC: BICCT 07:46
PROVIDERS: ATTEND Internal Medicine Hematology & Oncology
DX: C7A.012 Malignant carcinoid tumor of the ileum (principal); N20.0 Calculus of kidney
CPT/HCPCS: 74177; 82565; Q9967

== ENCOUNTER 2022-03-19 09:41 | Outpatient (CLI) | payer MEDICARE, BC | END 2022-03-19 09:42 | disposition home or self-care (01) | LOC: BICMAMMO 09:41 | PROVIDERS: ATTEND Family Medicine | DX: Z12.31 Encounter for screening mammogram for malignant neoplasm of breast (principal); Z13.820 Encounter for screening for osteoporosis; M85.851 Other specified disorders of bone density and structure, right thigh; M85.852 Other specified disorders of bone density and structure, left thigh; Z85.038 Personal history of other malignant neoplasm of large intestine; Z78.0 Asymptomatic menopausal state | CPT/HCPCS: 77063; 77067; 77080 ==

== ENCOUNTER 2022-07-28 10:03 | Outpatient (CLI) | payer MEDICARE, BC ==
[2022-07-28] MEDS ORDERED: Iopamidol-370 76% 500 ML MDV (1 ML CHARGE) ONE (14:47)
== END 2022-07-28 10:04 | disposition home or self-care (01) ==
LOC: BICCT 10:03
PROVIDERS: ATTEND Internal Medicine Hematology & Oncology
DX: C7A.012 Malignant carcinoid tumor of the ileum (principal)
CPT/HCPCS: 74177; 82565

== ENCOUNTER 2023-01-26 09:14 | Outpatient (CLI) | payer MEDICARE, BC | END 2023-01-26 09:15 | disposition home or self-care (01) | LOC: BICCT 09:14 | PROVIDERS: ATTEND Internal Medicine Hematology & Oncology | DX: C7A.012 Malignant carcinoid tumor of the ileum (principal) | CPT/HCPCS: 74177; 82565 ==

== ENCOUNTER 2023-04-15 09:37 | Outpatient (CLI) | payer MEDICARE, BC | END 2023-04-15 09:38 | disposition home or self-care (01) | LOC: BICMAMMO 09:37 | PROVIDERS: ATTEND Family Medicine | DX: Z12.31 Encounter for screening mammogram for malignant neoplasm of breast (principal) | CPT/HCPCS: 77063; 77067 ==

== ENCOUNTER 2023-09-30 22:29 | Inpatient (IN) | payer MEDICARE, BC ==
[~2023-09-30 22:29] MED LIST changes: -Iopamidol-370 76% 500 ML 1 ML ONE; +Iopamidol-370 76% 500 ML MDV (1 ML CHARGE) ONE
[2023-09-30 22:56] LABS: #Basophils 0.08 10x3/uL (0.0-0.2); #Eosinphils Less than 0.03 10x3/uL (0.0-0.7); %Basophils 0.4 % (0.0-1.0); %Eosinophils 0.1 % (0.0-10.0); %Lymphocytes 7.8 % (21.0-51.0); %Neutrophils 88.4 % (42.0-75.0); Hematocrit 41.8 % (36.0-47.0); Hemoglobin 14.3 g/dL (12.0-16.0); Mean Corpuscular HGB CONC 34.2 g/dL (32.0-36.0); Mean Corpuscular Hemoglobin 32.4 pg (27.0-31.0); Mean Corpuscular Volume 94.8 fL (78.0-98.0); Platelet Count 273 10x3/uL (130-400); RBC Distribution Width 12.7 % (11.5-14.5); Red Blood Cell (RBC) Count 4.41 mill/uL (4.20-5.40)
[2023-09-30 23:09] LABS: ALT (SGPT) 41 U/L (8-55); AST (SGOT) 71 U/L (5-34); Albumin 4.3 g/dL (3.4-4.8); Alkaline Phosphatase 80 U/L (40-110); Anion Gap 22 mmol/L (10-20); BUN (Urea Nitrogen) 18 mg/dL (9.8-20.1); Bilirubin, Total 0.6 mg/dL (0.2-1.2); Calc. Creatinine Clearance 0 mL/min (70-130); Calcium 10.5 mg/dL (7.8-10.44); Carbon Dioxide 16 mmol/L (23-31); Chloride 107 mmol/L (98-107); Estimated GFR 43; Globulin 4.1 g/dL (2.4-3.5); Glucose 189 mg/dL (83-110); Lipase 33 U/L (8-78); Potassium 4.2 mmol/L (3.5-5.1); Protein, Total 8.4 g/dL (5.8-8.1); Sodium 141 mmol/L (136-145)
[2023-09-30] MEDS ORDERED: Morphine 4 MG/ML VIAL ONE (23:17)
[2023-09-30] MEDS ORDERED: Ondansetron PF 4 MG/2 ML Vial ONE (23:17)
[2023-09-30 23:27] LABS: Troponin I Less than 0.010 ng/mL (< 0.028)
[2023-09-30 23:32] LABS: Magnesium 1.5 mg/dL (1.6-2.6)
[2023-10-01 00:15] LABS: Actual Bicarbonate (HCO3v) 20.7 mEq/L (22-28); Base Excess -4.6 mEq/L (-2.0 to +3.0); Calcium, Ionized (venous) 1.19 mmol/L (1.16-1.32); Chloride (VBG) 105 mmol/L (98-106); Hematocrit-VBG 41 % (36.0-47.0); Hemoglobin (Hb) 14.1 g/dL (11.7-16.1); Potassium (VBG) 4.27 mmol/L (3.70-5.30); Sodium 143 mmol/L (133-146); pH (venous) 7.342 (7.32-7.43)
[2023-10-01] MEDS ORDERED: Sodium Chloride 0.9% 100 ML ONE (01:19)
[2023-10-01] MEDS ORDERED: Piperacillin/Tazobactam 4.5 GM VIAL ONE (01:19)
[2023-10-01] MEDS ORDERED: Magnesium 2 GM/50 ML BAG (IN WATER) ONE (01:19)
[2023-10-01] MEDS ORDERED: Ondansetron PF 4 MG/2 ML Vial IVP PRN (01:30)
[2023-10-01] MEDS ORDERED: Ondansetron ODT 4 MG TAB SL PRN (01:30)
[2023-10-01] MEDS ORDERED: Acetaminophen 325 MG TAB PO PRN (01:30)
[2023-10-01] MEDS ORDERED: Dextrose 50% Abboject 50 ML SYRINGE SLOW IVP PRN (01:31)
[2023-10-01] MEDS ORDERED: HumaLOG 300 UNITS/3 ML VIAL SC PRN (01:31)
[2023-10-01] MEDS ORDERED: Dextrose 5% in Water 1,000 ML IV PRN (01:31)
[2023-10-01] MEDS ORDERED: Glucagon 1 MG/ML KIT IM PRN (01:31)
[2023-10-01 03:04] LABS: Lactic Acid 2.1 mmol/L (0.5-2.2)
[2023-10-01] MEDS: Morphine 2 MG/ML VIAL SLOW IVP PRN (03:27)
[2023-10-01] MEDS: Sodium Chloride 0.9% 1,000 ML IV SCH ×2 (03:27→04:40)
[2023-10-01] MEDS: Magnesium 2 GM/50 ML(in water) 2 GM in Premix 1 BAG IVPB SCH (03:27)
[2023-10-01 03:59] VITALS: BMI 36.6
[2023-10-01 04:34] LABS: #Basophils 0.05 10x3/uL (0.0-0.2); #Eosinphils Less than 0.03 10x3/uL (0.0-0.7); %Basophils 0.4 % (0.0-1.0); %Lymphocytes 11.4 % (21.0-51.0); %Neutrophils 78.9 % (42.0-75.0); Hematocrit 40.7 % (36.0-47.0); Hemoglobin 13.4 g/dL (12.0-16.0); Mean Corpuscular HGB CONC 32.9 g/dL (32.0-36.0); Mean Corpuscular Hemoglobin 31.9 pg (27.0-31.0); Mean Corpuscular Volume 96.9 fL (78.0-98.0); Mean Platelet Volume 9.2 fL (7.4-10.4); Platelet Count 241 10x3/uL (130-400); RBC Distribution Width 12.7 % (11.5-14.5)
[2023-10-01 04:49] LABS: Phosphorus 3.6 mg/dL (2.3-4.7)
[2023-10-01 05:09] LABS: Anion Gap 20 mmol/L (10-20); BUN (Urea Nitrogen) 16 mg/dL (9.8-20.1); Calc. Creatinine Clearance 56 mL/min (70-130); Calcium 9.8 mg/dL (7.8-10.44); Carbon Dioxide 19 mmol/L (23-31); Chloride 107 mmol/L (98-107); Estimated GFR 49; Glucose 129 mg/dL (83-110); Magnesium 2.4 mg/dL (1.6-2.6); Potassium 4.4 mmol/L (3.5-5.1); Sodium 142 mmol/L (136-145)
[2023-10-01] MEDS: Ondansetron PF 4 MG/2 ML Vial IVP PRN (06:10)
[2023-10-01] MEDS ORDERED: hydrALAZINE 20 MG/ML VIAL SLOW IVP PRN (07:36)
[2023-10-01] MEDS: Famotidine/PF 20 mg/2ml Vial SLOW IVP SCH (07:46)
[2023-10-01 08:58] LABS: Magnesium 3.4 mg/dL (1.6-2.6); Phosphorus 3.4 mg/dL (2.3-4.7)
[2023-10-02 05:54] LABS: #Basophils 0.05 10x3/uL (0.0-0.2); %Basophils 0.6 % (0.0-1.0); %Eosinophils 0.4 % (0.0-10.0); %Lymphocytes 17.9 % (21.0-51.0); %Monocytes 13.5 % (0.0-10.0); %Neutrophils 66.9 % (42.0-75.0); Hematocrit 36.7 % (36.0-47.0); Hemoglobin 11.8 g/dL (12.0-16.0); Mean Corpuscular HGB CONC 32.2 g/dL (32.0-36.0); Mean Corpuscular Hemoglobin 33.2 pg (27.0-31.0); Mean Corpuscular Volume 103.4 fL (78.0-98.0); Mean Platelet Volume 9.6 fL (7.4-10.4); Platelet Count 235 10x3/uL (130-400); RBC Distribution Width 13.2 % (11.5-14.5); Red Blood Cell (RBC) Count 3.55 mill/uL (4.20-5.40)
[2023-10-02 06:26] LABS: Anion Gap 11 mmol/L (10-20); BUN (Urea Nitrogen) 13 mg/dL (9.8-20.1); Calc. Creatinine Clearance 64 mL/min (70-130); Calcium 8.8 mg/dL (7.8-10.44); Carbon Dioxide 23 mmol/L (23-31); Chloride 107 mmol/L (98-107); Estimated GFR 56; Glucose 113 mg/dL (83-110); Sodium 137 mmol/L (136-145)
[2023-10-03] MEDS: Acetaminophen 325 MG TAB PO PRN (01:47)
[2023-10-03] MEDS: Bisacodyl 5 MG TAB PO SCH (09:36)
[2023-10-03] MEDS: Sodium Chloride 0.9% 1,000 ML IV SCH (10:06)
[2023-10-03 12:42] LABS: #Basophils 0.04 10x3/uL (0.0-0.2); #Eosinphils Less than 0.03 10x3/uL (0.0-0.7); %Basophils 0.4 % (0.0-1.0); %Eosinophils 0.2 % (0.0-10.0); %Lymphocytes 10.8 % (21.0-51.0); %Monocytes 9.1 % (0.0-10.0); %Neutrophils 78.7 % (42.0-75.0); Hematocrit 38.9 % (36.0-47.0); Hemoglobin 12.6 g/dL (12.0-16.0); Mean Corpuscular HGB CONC 32.4 g/dL (32.0-36.0); Mean Corpuscular Hemoglobin 33.4 pg (27.0-31.0); Mean Corpuscular Volume 103.2 fL (78.0-98.0); Platelet Count 280 10x3/uL (130-400); RBC Distribution Width 13.2 % (11.5-14.5); Red Blood Cell (RBC) Count 3.77 mill/uL (4.20-5.40)
[2023-10-03 12:59] LABS: Anion Gap 18 mmol/L (10-20); BUN (Urea Nitrogen) 9 mg/dL (9.8-20.1); Calc. Creatinine Clearance 74 mL/min (70-130); Calcium 8.9 mg/dL (7.8-10.44); Carbon Dioxide 20 mmol/L (23-31); Chloride 107 mmol/L (98-107); Estimated GFR 67; Glucose 84 mg/dL (83-110); Potassium 3.6 mmol/L (3.5-5.1); Sodium 141 mmol/L (136-145)
[2023-10-04 05:28] LABS: #Basophils Less than 0.03 10x3/uL (0.0-0.2); #Eosinphils Less than 0.03 10x3/uL (0.0-0.7); %Basophils 0.2 % (0.0-1.0); %Lymphocytes 8.7 % (21.0-51.0); %Monocytes 8.8 % (0.0-10.0); %Neutrophils 81.8 % (42.0-75.0); Hematocrit 35.4 % (36.0-47.0); Hemoglobin 11.5 g/dL (12.0-16.0); Mean Corpuscular HGB CONC 32.5 g/dL (32.0-36.0); Mean Corpuscular Volume 101.4 fL (78.0-98.0); Mean Platelet Volume 9.1 fL (7.4-10.4); Platelet Count 215 10x3/uL (130-400); Red Blood Cell (RBC) Count 3.49 mill/uL (4.20-5.40)
[2023-10-04 06:22] LABS: Anion Gap 20 mmol/L (10-20); BUN (Urea Nitrogen) 11 mg/dL (9.8-20.1); Calc. Creatinine Clearance 79 mL/min (70-130); Calcium 8.9 mg/dL (7.8-10.44); Carbon Dioxide 18 mmol/L (23-31); Chloride 104 mmol/L (98-107); Estimated GFR 73; Glucose 81 mg/dL (83-110); Potassium 3.5 mmol/L (3.5-5.1); Sodium 138 mmol/L (136-145)
[2023-10-04] MEDS ORDERED: Electrolyte Replacement Protocol FS PRN (08:00)
[2023-10-04] MEDS: Potassium Chloride 20 MEQ in Premix 1 BAG IVPB SCH (09:01)
[2023-10-04] MEDS: Famotidine/PF 20 mg/2ml Vial SLOW IVP SCH (09:03)
[2023-10-04] MEDS ORDERED: Iopamidol-370 76% 500 ML MDV (1 ML CHARGE) ONE (12:51)
[2023-10-05 05:37] LABS: #Basophils 0.03 10x3/uL (0.0-0.2); #Eosinphils Less than 0.03 10x3/uL (0.0-0.7); %Basophils 0.3 % (0.0-1.0); %Eosinophils 0.1 % (0.0-10.0); %Lymphocytes 11.6 % (21.0-51.0); %Neutrophils 74.5 % (42.0-75.0); Hematocrit 34.1 % (36.0-47.0); Hemoglobin 11.1 g/dL (12.0-16.0); Mean Corpuscular HGB CONC 32.6 g/dL (32.0-36.0); Mean Corpuscular Hemoglobin 32.9 pg (27.0-31.0); Mean Corpuscular Volume 101.2 fL (78.0-98.0); Mean Platelet Volume 9.6 fL (7.4-10.4); Platelet Count 221 10x3/uL (130-400); RBC Distribution Width 13.2 % (11.5-14.5); Red Blood Cell (RBC) Count 3.37 mill/uL (4.20-5.40)
[2023-10-05 05:47] LABS: Anion Gap 17 mmol/L (10-20); BUN (Urea Nitrogen) 11 mg/dL (9.8-20.1); Calc. Creatinine Clearance 79 mL/min (70-130); Calcium 8.6 mg/dL (7.8-10.44); Carbon Dioxide 23 mmol/L (23-31); Chloride 103 mmol/L (98-107); Estimated GFR 72; Glucose 62 mg/dL (83-110); Potassium 3.2 mmol/L (3.5-5.1); Sodium 140 mmol/L (136-145)
[2023-10-05] MEDS ORDERED: Rocuronium Bromide 10 MG/ML (10ML VIAL) ONE (08:17)
[2023-10-05] MEDS ORDERED: fentaNYL PF 100 MCG/2 ML SYRINGE ONE (08:17)
[2023-10-05] MEDS ORDERED: PROPOFOL 20 ML ONE (08:19)
[2023-10-05] MEDS ORDERED: Lidocaine 1% PF 5 ML VIAL ONE (08:21)
[2023-10-05] MEDS ORDERED: EPINEPHrine 1 MG/ML VIAL ONE (08:45)
[2023-10-05] MEDS ORDERED: Bupivacaine 0.25% HCL 30 ML VIAL ONE (08:45)
[2023-10-05] MEDS ORDERED: CEFAZOLIN 2 GM VIAL ONE (08:56)
[2023-10-05] MEDS ORDERED: Sodium Chloride 0.9% 100 ML ONE (08:56)
[2023-10-05] MEDS ORDERED: Dexamethasone 20 MG/5 ML VIAL ONE (09:10)
[2023-10-05] MEDS ORDERED: SUCCINYLCHOLINE/SOD CL,ISO/PF 200 MG/10 ML SYRINGE FS ONE (09:10)
[2023-10-05] MEDS ORDERED: Ketorolac Tromethamine 30 MG (1 mL) VIAL ONE (09:10)
[2023-10-05] MEDS ORDERED: SUGAMMADEX SODIUM 200 MG/2 ML VIAL ONE (09:51)
[2023-10-05] MEDS ORDERED: fentaNYL 50 mcg/mL 1 mL Vial ONE (10:23)
[2023-10-05] MEDS: Potassium Chloride 20 MEQ TAB PO SCH (11:29)
[2023-10-05] MEDS: Potassium Chloride 20 MEQ in Premix 1 BAG IVPB SCH (14:44)
[2023-10-06 06:04] LABS: #Basophils Less than 0.03 10x3/uL (0.0-0.2); #Eosinphils Less than 0.03 10x3/uL (0.0-0.7); %Basophils 0.1 % (0.0-1.0); %Lymphocytes 7.9 % (21.0-51.0); %Neutrophils 83.4 % (42.0-75.0); Hematocrit 35.8 % (36.0-47.0); Hemoglobin 11.3 g/dL (12.0-16.0); Mean Corpuscular HGB CONC 31.6 g/dL (32.0-36.0); Mean Corpuscular Hemoglobin 32.5 pg (27.0-31.0); Mean Corpuscular Volume 102.9 fL (78.0-98.0); Mean Platelet Volume 9.3 fL (7.4-10.4); Platelet Count 197 10x3/uL (130-400); RBC Distribution Width 13.2 % (11.5-14.5); Red Blood Cell (RBC) Count 3.48 mill/uL (4.20-5.40)
[2023-10-06 06:23] LABS: Anion Gap 17 mmol/L (10-20); BUN (Urea Nitrogen) 14 mg/dL (9.8-20.1); Calc. Creatinine Clearance 77 mL/min (70-130); Calcium 8.4 mg/dL (7.8-10.44); Carbon Dioxide 22 mmol/L (23-31); Chloride 103 mmol/L (98-107); Estimated GFR 70; Glucose 61 mg/dL (83-110); Potassium 3.3 mmol/L (3.5-5.1); Sodium 139 mmol/L (136-145)
[2023-10-06] MEDS: Enoxaparin 40 MG (0.4 mL) SYRINGE SC SCH (08:14)
[2023-10-06] MEDS: Potassium Chloride 20 MEQ in Premix 1 BAG IVPB SCH (09:40)
[2023-10-06] MEDS: NS 0.9% w/ 40 MEQ KCL 1,000 ML IV SCH (09:51)
[2023-10-06] MEDS: Piperacillin/Tazobactam 3.375 GM in Sodium Chloride 0.9% 100 ML IVPB SCH ×2 (09:52→17:17)
[2023-10-06] MEDS ORDERED: Insulin Lispro 100 UNIT/ML 10 ML VIAL SC PRN (16:30)
[2023-10-07 04:54] LABS: #Basophils Less than 0.03 10x3/uL (0.0-0.2); #Eosinphils Less than 0.03 10x3/uL (0.0-0.7); %Basophils 0.1 % (0.0-1.0); %Lymphocytes 7.5 % (21.0-51.0); %Neutrophils 81.8 % (42.0-75.0); Hematocrit 31.9 % (36.0-47.0); Hemoglobin 10.5 g/dL (12.0-16.0); Mean Corpuscular HGB CONC 32.9 g/dL (32.0-36.0); Mean Corpuscular Hemoglobin 33.2 pg (27.0-31.0); Mean Corpuscular Volume 100.9 fL (78.0-98.0); Mean Platelet Volume 9.3 fL (7.4-10.4); Platelet Count 163 10x3/uL (130-400); RBC Distribution Width 13.3 % (11.5-14.5); Red Blood Cell (RBC) Count 3.16 mill/uL (4.20-5.40)
[2023-10-07 05:26] LABS: ALT (SGPT) 61 U/L (8-55); AST (SGOT) 28 U/L (5-34); Albumin 2.5 g/dL (3.4-4.8); Alkaline Phosphatase 88 U/L (40-110); Anion Gap 14 mmol/L (10-20); BUN (Urea Nitrogen) 11 mg/dL (9.8-20.1); Bilirubin, Total 0.6 mg/dL (0.2-1.2); Calc. Creatinine Clearance 68 mL/min (70-130); Calcium 8.1 mg/dL (7.8-10.44); Carbon Dioxide 25 mmol/L (23-31); Chloride 103 mmol/L (98-107); Estimated GFR 61; Globulin 3.1 g/dL (2.4-3.5); Glucose 132 mg/dL (83-110); Potassium 2.7 mmol/L (3.5-5.1); Protein, Total 5.6 g/dL (5.8-8.1); Sodium 139 mmol/L (136-145)
[2023-10-07] MEDS: Potassium Chloride 20 MEQ in Premix 1 BAG IVPB SCH (06:15)
[2023-10-07] MEDS: Potassium Chloride 20 MEQ TAB PO SCH ×3 (10:30→17:44)
[2023-10-07 10:40] VITALS: BMI 36.6
[2023-10-07] MEDS ORDERED: Potassium Chloride 20 MEQ TAB PO SCH (12:00)
[2023-10-07 13:18] LABS: Bacteria/HPF None Seen HPF (None Seen); Bilirubin Negative (Negative); Blood, Urine 2+ (Negative); CAUTI Indications for Culture Fever or rigors; Clarity Clear (Clear); Glucose, Urine (Dipstick) Normal (Negative); Ketone, Urine Negative (Negative); Leukocyte 75 Leu/uL (Negative); Nitrite Negative (Negative); Protein, Urine (Dipstick) 50 mg/dL (Neg-Trace); RBC/HPF 0-3 HPF (0-3); Specific Gravity, Urine 1.015 (1.002-1.036); Squamous Epithelial None Seen HPF (0-3); Urobilinogen Normal mg/dL (Less than 2); pH, Urine 6.5 (5.0-9.0)
[2023-10-07 13:28] LABS: Urine Culture Reflex Yes Yes
[2023-10-07] MEDS ORDERED: Ibuprofen 600 MG TAB PO PRN (15:52)
[2023-10-07] MEDS ORDERED: traMADol HCl 50 MG TAB PO PRN (15:52)
[2023-10-07 16:50] LABS: Potassium 3.2 mmol/L (3.5-5.1)
[2023-10-07] MEDS: Acetaminophen 500 MG TAB PO SCH (17:44)
[2023-10-08 06:17] LABS: Anion Gap 15 mmol/L (10-20); BUN (Urea Nitrogen) 10 mg/dL (9.8-20.1); Calc. Creatinine Clearance 72 mL/min (70-130); Calcium 8.1 mg/dL (7.8-10.44); Carbon Dioxide 19 mmol/L (23-31); Chloride 108 mmol/L (98-107); Estimated GFR 66; Glucose 97 mg/dL (83-110); Potassium 3.9 mmol/L (3.5-5.1); Sodium 138 mmol/L (136-145)
[2023-10-08 06:47] LABS: #Basophils 0.03 10x3/uL (0.0-0.2); %Basophils 0.4 % (0.0-1.0); %Eosinophils 1.3 % (0.0-10.0); %Lymphocytes 27.9 % (21.0-51.0); %Monocytes 16.7 % (0.0-10.0); %Neutrophils 52.8 % (42.0-75.0); Hematocrit 33.1 % (36.0-47.0); Hemoglobin 10.6 g/dL (12.0-16.0); Mean Platelet Volume 10.3 fL (7.4-10.4); Platelet Count 166 10x3/uL (130-400); RBC Distribution Width 13.3 % (11.5-14.5); Red Blood Cell (RBC) Count 3.31 mill/uL (4.20-5.40)
[2023-10-08] MEDS: Amoxicillin/Potassium Clav 500 MG TAB PO SCH (08:28)
[2023-10-08] MEDS: Polyethylene Glycol 3350 17 GM Packet PO SCH (08:29)
[2023-10-08] MEDS: LevoFLOXacin 750 MG TAB PO SCH (09:30)
[2023-10-08 15:34] VITALS: BP 127/78; TEMP 97.3
[2023-10-09] MEDS ORDERED: LevoFLOXacin 750 MG TAB PO SCH (06:00)
== END 2023-10-08 16:40 | disposition home or self-care (01) | DRG 353 ==
LOC: ERS 22:29 → SURG A 10-01 01:26
PROVIDERS: ADMIT Student in an Organized Health Care Education/Training Program; ATTEND Student in an Organized Health Care Education/Training Program
PROC: 4A033R1 Measurement of Arterial Saturation, Peripheral, Percutaneous Approach (ICD-10-PCS; 2023-10-01)
PROC: 0WQF0ZZ Repair Abdominal Wall, Open Approach (ICD-10-PCS; principal; 2023-10-05)
DX: K43.6 Other and unspecified ventral hernia with obstruction, without gangrene (principal); A41.4 Sepsis due to anaerobes; E87.20 Acidosis, unspecified; N17.9 Acute kidney failure, unspecified; N39.0 Urinary tract infection, site not specified; E03.9 Hypothyroidism, unspecified; E11.9 Type 2 diabetes mellitus without complications; I10 Essential (primary) hypertension; E78.5 Hyperlipidemia, unspecified; D72.829 Elevated white blood cell count, unspecified; E87.6 Hypokalemia; E83.42 Hypomagnesemia; Z90.49 Acquired absence of other specified parts of digestive tract; Z79.890 Hormone replacement therapy; Z79.899 Other long term (current) drug therapy
CPT/HCPCS: 36415; 36416; 71045; 74018; 74177; 80048; 80053; 81001; 82805; 83605; 83690; 83735; 84100; 84484; 85025; 87040; 87077; 87086; 87149; 87186; 88302; 93005; 96374; 96375; J0171; J0665; J1100; J1650; J1815; J1885; J2270; J2272; J2405; J2543; J2704; J3010; J3475; J3480; J3490; J7050; Q9967; S0028

== ENCOUNTER 2023-10-14 18:15 | Inpatient (IN) | payer MEDICARE, BC ==
[2023-10-14 18:45] LABS: %Basophils 0.8 % (0.0-1.0); %Eosinophils 1.7 % (0.0-10.0); %Lymphocytes 14.4 % (21.0-51.0); %Monocytes 9.1 % (0.0-10.0); %Neutrophils 72.8 % (42.0-75.0); Hematocrit 39.3 % (36.0-47.0); Hemoglobin 12.9 g/dL (12.0-16.0); Mean Corpuscular HGB CONC 32.8 g/dL (32.0-36.0); Mean Corpuscular Hemoglobin 32.1 pg (27.0-31.0); Mean Corpuscular Volume 97.8 fL (78.0-98.0); Mean Platelet Volume 9.5 fL (7.4-10.4); Platelet Count 398 10x3/uL (130-400); RBC Distribution Width 13.2 % (11.5-14.5); Red Blood Cell (RBC) Count 4.02 mill/uL (4.20-5.40)
[2023-10-14 18:58] LABS: Troponin I 0.012 ng/mL (< 0.028)
[2023-10-14 19:05] LABS: ALT (SGPT) 21 U/L (8-55); AST (SGOT) 26 U/L (5-34); Albumin 3.8 g/dL (3.4-4.8); Alkaline Phosphatase 86 U/L (40-110); Anion Gap 17 mmol/L (10-20); BUN (Urea Nitrogen) 20 mg/dL (9.8-20.1); Bilirubin, Total 0.7 mg/dL (0.2-1.2); Calc. Creatinine Clearance 0 mL/min (70-130); Calcium 9.7 mg/dL (7.8-10.44); Carbon Dioxide 16 mmol/L (23-31); Chloride 113 mmol/L (98-107); Estimated GFR 41; Glucose 112 mg/dL (83-110); Lipase 90 U/L (8-78); Magnesium 1.4 mg/dL (1.6-2.6); Protein, Total 7.8 g/dL (5.8-8.1); Sodium 142 mmol/L (136-145)
[2023-10-14] MEDS ORDERED: Acetaminophen 500 MG TAB ONE (21:33)
[2023-10-14 21:59] LABS: Bacteria/HPF 1+ HPF (None Seen); Bilirubin Negative (Negative); Blood, Urine 1+ (Negative); CAUTI Indications for Culture Dysuria,urgency,freq; Clarity Clear (Clear); Glucose, Urine (Dipstick) Normal (Negative); Ketone, Urine Negative (Negative); Leukocyte 250 Leu/uL (Negative); Nitrite Negative (Negative); Protein, Urine (Dipstick) 10 mg/dL (Neg-Trace); Renal Epithelial 0-3 HPF (None Seen); Specific Gravity, Urine 1.025 (1.002-1.036); Squamous Epithelial 0-3 HPF (0-3); Urobilinogen Normal mg/dL (Less than 2); WBC/HPF 21-50 HPF (0-3); pH, Urine 5.5 (5.0-9.0)
[2023-10-14 22:00] LABS: Urine Culture Reflex Yes Yes
[2023-10-14] MEDS ORDERED: cefTRIAXone (ROCEPHIN) 1 GM VIAL ONE (22:36)
[2023-10-14] MEDS ORDERED: Sodium Chloride 0.9% 100 ML ONE (22:36)
[2023-10-14] MEDS ORDERED: traMADol HCl 50 MG TAB PO PRN (23:16)
[2023-10-14] MEDS ORDERED: Dextrose 50% Abboject 50 ML SYRINGE SLOW IVP PRN (23:18)
[2023-10-14] MEDS ORDERED: Dextrose 5% in Water 1,000 ML IV PRN (23:18)
[2023-10-14] MEDS ORDERED: Ondansetron PF 4 MG/2 ML Vial IVP PRN ×2 (23:18→23:30)
[2023-10-14] MEDS ORDERED: Glucagon 1 MG/ML KIT IM PRN (23:18)
[2023-10-14] MEDS ORDERED: Acetaminophen 325 MG TAB PO PRN (23:30)
[2023-10-14] MEDS ORDERED: Ondansetron ODT 4 MG TAB SL PRN (23:30)
[2023-10-14] MEDS ORDERED: Loperamide HCl 2 MG CAP PO PRN ×2 (23:32→23:38)
[2023-10-15 01:42] VITALS: BMI 33.8
[2023-10-15] MEDS: Magnesium 2 GM/50 ML(in water) 2 GM in Premix 1 BAG IVPB SCH (02:03)
[2023-10-15] MEDS: Lactated Ringer's 1,000 ML IV SCH (02:03)
[2023-10-15] MEDS: Sodium Bicarb 50 MEQ/50 ML Abboject 8.4% SYRINGE IVP SCH (02:09)
[2023-10-15] MEDS: Sodium Bicarb 50 mEq/50 ML VIAL IVP SCH (02:27)
[2023-10-15 05:13] LABS: #Basophils 0.08 10x3/uL (0.0-0.2); %Basophils 0.7 % (0.0-1.0); %Eosinophils 1.3 % (0.0-10.0); %Lymphocytes 22.1 % (21.0-51.0); %Monocytes 12.1 % (0.0-10.0); Hematocrit 34.9 % (36.0-47.0); Hemoglobin 11.2 g/dL (12.0-16.0); Mean Corpuscular HGB CONC 32.1 g/dL (32.0-36.0); Mean Corpuscular Hemoglobin 32.4 pg (27.0-31.0); Mean Corpuscular Volume 100.9 fL (78.0-98.0); Mean Platelet Volume 9.1 fL (7.4-10.4); Platelet Count 381 10x3/uL (130-400); RBC Distribution Width 13.2 % (11.5-14.5); Red Blood Cell (RBC) Count 3.46 mill/uL (4.20-5.40)
[2023-10-15 05:31] LABS: Anion Gap 16 mmol/L (10-20); BUN (Urea Nitrogen) 15 mg/dL (9.8-20.1); Calc. Creatinine Clearance 56 mL/min (70-130); Calcium 8.8 mg/dL (7.8-10.44); Carbon Dioxide 19 mmol/L (23-31); Chloride 112 mmol/L (98-107); Estimated GFR 53; Glucose 97 mg/dL (83-110); Magnesium 3.4 mg/dL (1.6-2.6); Potassium 3.5 mmol/L (3.5-5.1); Sodium 143 mmol/L (136-145)
[2023-10-15] MEDS: Levothyroxine Sodium 75 MCG TAB PO SCH (05:34)
[2023-10-15] MEDS: Polyethylene Glycol 3350 17 GM Packet PO SCH (08:21)
[2023-10-15] MEDS: Sertraline 25 MG TAB PO SCH (08:21)
[2023-10-15] MEDS ORDERED: Loperamide HCl 2 MG CAP PO SCH (09:00)
[2023-10-15] MEDS: dilTIAZem CD 240 MG CAP PO SCH (10:07)
[2023-10-15] MEDS: Simvastatin 10 MG TAB PO SCH (20:25)
[2023-10-15] MEDS: cefTRIAXone\\ROCEPHIN 1 GM in Sodium Chloride 0.9% 100 ML IVPB SCH (22:44)
[2023-10-16] MEDS: Acetaminophen 500 MG TAB PO PRN (05:14)
[2023-10-16] MEDS: Sodium Chloride 0.65% Nasal 44 ML BOT EA NARE PRN (06:22)
[2023-10-17 07:47] LABS: %Basophils 1.1 % (0.0-1.0); %Eosinophils 2.4 % (0.0-10.0); %Lymphocytes 23.3 % (21.0-51.0); %Monocytes 11.3 % (0.0-10.0); %Neutrophils 61.4 % (42.0-75.0); Hematocrit 36.9 % (36.0-47.0); Hemoglobin 11.9 g/dL (12.0-16.0); Mean Corpuscular HGB CONC 32.2 g/dL (32.0-36.0); Mean Corpuscular Hemoglobin 31.6 pg (27.0-31.0); Mean Corpuscular Volume 98.1 fL (78.0-98.0); Mean Platelet Volume 9.2 fL (7.4-10.4); Platelet Count 388 10x3/uL (130-400); Red Blood Cell (RBC) Count 3.76 mill/uL (4.20-5.40)
[2023-10-17 08:36] LABS: Anion Gap 15 mmol/L (10-20); BUN (Urea Nitrogen) 12 mg/dL (9.8-20.1); Calc. Creatinine Clearance 70 mL/min (70-130); Calcium 9.3 mg/dL (7.8-10.44); Carbon Dioxide 21 mmol/L (23-31); Chloride 107 mmol/L (98-107); Estimated GFR 69; Glucose 97 mg/dL (83-110); Potassium 3.2 mmol/L (3.5-5.1); Sodium 140 mmol/L (136-145)
[2023-10-17] MEDS: Potassium Chloride 20 MEQ TAB PO SCH (16:30)
[2023-10-18 07:16] LABS: #Basophils 0.08 10x3/uL (0.0-0.2); %Basophils 0.8 % (0.0-1.0); %Eosinophils 1.9 % (0.0-10.0); %Lymphocytes 21.1 % (21.0-51.0); %Monocytes 10.7 % (0.0-10.0); Hematocrit 36.1 % (36.0-47.0); Hemoglobin 11.5 g/dL (12.0-16.0); Mean Corpuscular HGB CONC 31.9 g/dL (32.0-36.0); Mean Corpuscular Hemoglobin 32.2 pg (27.0-31.0); Mean Corpuscular Volume 101.1 fL (78.0-98.0); Mean Platelet Volume 9.1 fL (7.4-10.4); Platelet Count 377 10x3/uL (130-400); Red Blood Cell (RBC) Count 3.57 mill/uL (4.20-5.40)
[2023-10-18 07:34] VITALS: TEMP 97.8
[2023-10-18 07:45] LABS: Anion Gap 12 mmol/L (10-20); BUN (Urea Nitrogen) 13 mg/dL (9.8-20.1); Calc. Creatinine Clearance 71 mL/min (70-130); Calcium 9.4 mg/dL (7.8-10.44); Carbon Dioxide 22 mmol/L (23-31); Chloride 110 mmol/L (98-107); Estimated GFR 70; Glucose 101 mg/dL (83-110); Potassium 3.8 mmol/L (3.5-5.1); Sodium 140 mmol/L (136-145)
[2023-10-18] MEDS: Midodrine HCl 5 MG TAB PO SCH ×2 (10:56→15:01)
[2023-10-18 17:15] VITALS: BP 141/79
== END 2023-10-18 15:16 | DRG 871 ==
LOC: ERS 18:15 → INTOOBSV 23:21 → T4-A 23:21 → OBSVTOIN 10-16 09:45
PROVIDERS: ADMIT Internal Medicine; ATTEND Internal Medicine
DX: A41.2 Sepsis due to unspecified staphylococcus (principal); G93.41 Metabolic encephalopathy; N39.0 Urinary tract infection, site not specified; E87.20 Acidosis, unspecified; N17.9 Acute kidney failure, unspecified; R65.20 Severe sepsis without septic shock; E03.9 Hypothyroidism, unspecified; E66.9 Obesity, unspecified; N18.2 Chronic kidney disease, stage 2 (mild); E11.22 Type 2 diabetes mellitus with diabetic chronic kidney disease; D3A.00 Benign carcinoid tumor of unspecified site; I12.9 Hypertensive chronic kidney disease with stage 1 through stage 4 chronic kidney disease, or unspecified chronic kidney disease; I95.1 Orthostatic hypotension; W19.XXXA Unspecified fall, initial encounter; R53.81 Other malaise; E87.6 Hypokalemia; E83.42 Hypomagnesemia; D72.829 Elevated white blood cell count, unspecified; Z96.653 Presence of artificial knee joint, bilateral; Z79.890 Hormone replacement therapy; Z79.899 Other long term (current) drug therapy; Z90.710 Acquired absence of both cervix and uterus; Z90.49 Acquired absence of other specified parts of digestive tract; Z98.891 History of uterine scar from previous surgery; Z68.33 Body mass index [BMI] 33.0-33.9, adult
CPT/HCPCS: 36415; 70450; 71045; 74177; 80048; 80053; 81001; 82533; 83605; 83690; 83735; 84484; 85025; 87086; 93005; 96361; 96374; 96375; 96376; G0378; J0696; J3475; J3490; J7120; Q9967

== ENCOUNTER 2025-01-27 20:31 | Emergency (ER) | payer MEDICARE, BC ==
[2025-01-27 21:06] LABS: #Basophils 0.13 10x3/uL (0.0-0.2); #Eosinophils 0.15 10x3/uL (0.0-0.7); #Monocytes 1.11 10x3/uL (0.11-0.59); #Neutrophils 10.08 10x3/uL (1.40-6.50); %Basophils 0.9 % (0.0-1.0); %Eosinophils 1.1 % (0.0-10.0); %Lymphocytes 18.5 % (21.0-51.0); %Monocytes 7.9 % (0.0-10.0); %Neutrophils 71.2 % (42.0-75.0); Hematocrit 39.7 % (36.0-47.0); Hemoglobin 13.0 g/dL (12.0-16.0); Mean Corpuscular Hemoglobin 31.5 pg (27.0-31.0); Mean Corpuscular Volume 96.1 fL (78.0-98.0); Platelet Count 264 10x3/uL (130-400); Red Blood Cell (RBC) Count 4.13 mill/uL (4.20-5.40); White Blood Cell (WBC) Count 14.14 10x3/uL (4.8-10.8)
[2025-01-27 21:25] LABS: ALT (SGPT) 15 U/L (Less than 34); AST (SGOT) 33 U/L (11-34); Albumin 4.1 g/dL (3.1-4.5); Alkaline Phosphatase 87 U/L (40-110); Anion Gap 19 mmol/L (10-20); BUN (Urea Nitrogen) 19 mg/dL (9.8-20.1); Bilirubin, Total 0.3 mg/dL (0.3-1.2); Calc. Creatinine Clearance 0 mL/min (70-130); Calcium 9.7 mg/dL (7.8-10.44); Carbon Dioxide 21 mmol/L (23-31); Chloride 109 mmol/L (98-107); Globulin 3.8 g/dL (2.4-3.5); Glucose 205 mg/dL (83-110); Potassium 3.9 mmol/L (3.5-5.1); Sodium 145 mmol/L (136-145)
[2025-01-27] MEDS ORDERED: Acetaminophen 500 MG TAB ONE (21:35)
[2025-01-27 21:46] LABS: CAUTI Indications for Culture Pelvic or flank pain; Glucose, Urine (Dipstick) Normal (Negative); Leukocyte 500 Leu/uL (Negative); Protein, Urine (Dipstick) 30 mg/dL (Neg-Trace); RBC/HPF 0-3 HPF (0-3); Specific Gravity, Urine 1.017 (1.002-1.036); WBC/HPF Greater than 50 HPF (0-3)
[2025-01-27 21:47] LABS: Acetaminophen Less than 10 mcg/mL (Less than 10); CK (CPK) 27 U/L (29-168); Salicylate Less than 8.0 mg/dL (Less than 8.0)
[2025-01-27 21:47] LABS: Bacteria/HPF 1+ HPF (None Seen)
[2025-01-27 21:48] LABS: Urine Culture Reflex Yes Yes
[2025-01-27 21:49] LABS: Cocaine Metabolite Screen Negative (Negative); THC/Cannabinoid Screen Negative (Negative); Tricyclic Screen Negative (Negative)
[2025-01-27] MEDS ORDERED: Bacitracin 1 PK ONE (23:15)
== END 2025-01-27 23:25 | disposition home or self-care (01) ==
LOC: ERS 20:31
DX: R55 Syncope and collapse (principal); S00.03XA Contusion of scalp, initial encounter; S70.02XA Contusion of left hip, initial encounter; N39.0 Urinary tract infection, site not specified; E11.9 Type 2 diabetes mellitus without complications; I10 Essential (primary) hypertension; W18.30XA Fall on same level, unspecified, initial encounter
CPT/HCPCS: 70450; 72125; 80053; 80306; 80307; 81001; 82550; 84484; 85025; 87086; 93005

== ENCOUNTER 2025-02-26 10:45 | Outpatient (CLI) | payer MEDICARE, BC | END 2025-02-26 10:46 | disposition home or self-care (01) | LOC: BICRAD 10:45 | PROVIDERS: ATTEND Family Medicine | DX: M47.26 Other spondylosis with radiculopathy, lumbar region (principal); M41.9 Scoliosis, unspecified | CPT/HCPCS: 72100 ==